=== PATIENT | female | born 1970 | race Native Hawaiian/Other Pacific Islander ===

== ENCOUNTER 2020-01-07 09:07 | Outpatient (REF) | payer MEDICAID, SELFPAY ==
--- NOTE | 2020-01-07 09:00 | EMG_ITS ---
Right median and ulnar motor and sensory studies were performed. Right radial sensory studies were performed. Paraspinal and some limb muscles were tested with a needle. IMPRESSION: 1. No evidence of entrapment neuropathy affecting right upper extremity. 2. Mild chronic right mid cervical radiculopathy. MD OPAL Field/ABHISHEK / [id number]
== END 2020-01-07 09:08 | disposition home or self-care (01) ==
LOC: HO.NEURO 09:07
DX: M79.601 Pain in right arm (principal)
CPT/HCPCS: 95860; 95886; 95909

== ENCOUNTER 2020-04-27 14:46 | Outpatient (REF) | payer MEDICAID, SELFPAY ==
--- NOTE | ~2020-04-27 | US_ITS ---
EXAMINATION: US PELVIS COMPLETE CLINICAL INFORMATION: Heavy and irregular bleeding. COMPARISON: None TECHNIQUE: Transabdominal and transvaginal imaging of pelvis is performed. FINDINGS: The uterus is anteverted and anteflexed measuring 12.6 cm in length, 8.3 cm in AP and 8.4 cm in transverse dimension. Endometrial thickness measures 0.6 cm. There is a well located IUD within the endometrial canal. There are 2 known fibroids. The larger fibroid in the right posterior body of uterus measures 5.2 x 3.9 x 4.7 cm. Previously it measured 6.1 x 4.7 x 5.8 cm. Smaller fibroid in the left anterior fundus measures 3.7 x 2.8 x 4.2 cm. Previously measured 4.0 x 3.3 x 3.8 cm. Neither ovary is visualized. There is no free fluid in the cul-de-sac. US/US pelvic complete IMPRESSION: Stable two uterine fibroids. IUD is in correct position within the endometrial canal. Ovaries are not seen.
--- NOTE | ~2020-04-27 | US_ITS ---
EXAMINATION: US PELVIS COMPLETE CLINICAL INFORMATION: Heavy and irregular bleeding. COMPARISON: None TECHNIQUE: Transabdominal and transvaginal imaging of pelvis is performed. FINDINGS: The uterus is anteverted and anteflexed measuring 12.6 cm in length, 8.3 cm in AP and 8.4 cm in transverse dimension. Endometrial thickness measures 0.6 cm. There is a well located IUD within the endometrial canal. There are 2 known fibroids. The larger fibroid in the right posterior body of uterus measures 5.2 x 3.9 x 4.7 cm. Previously it measured 6.1 x 4.7 x 5.8 cm. Smaller fibroid in the left anterior fundus measures 3.7 x 2.8 x 4.2 cm. Previously measured 4.0 x 3.3 x 3.8 cm. Neither ovary is visualized. There is no free fluid in the cul-de-sac. US/US transvaginal IMPRESSION: Stable two uterine fibroids. IUD is in correct position within the endometrial canal. Ovaries are not seen.
== END 2020-04-27 14:47 | disposition home or self-care (01) ==
LOC: HO.US 14:46
PROVIDERS: Visit Provider Internal Medicine
DX: N92.1 Excessive and frequent menstruation with irregular cycle (principal)
CPT/HCPCS: 76830; 76856

== ENCOUNTER 2020-05-30 14:31 | Outpatient (REF) | payer MEDICAID, SELFPAY ==
--- NOTE | ~2020-05-30 | XR_ITS ---
EXAMINATION: XR CHEST CLINICAL INFORMATION: Shortness of breath COMPARISON: Previous chest x-ray April 2016 TECHNIQUE: 2 views of the chest were obtained. FINDINGS: The cardiac and mediastinal contours are stable. The lungs are clear. There is slight elevation of the right hemidiaphragm that is stable. There is no pleural effusion or pneumothorax. Bony structures are unremarkable. XR/XR chest 2V IMPRESSION: No evidence for acute disease in the chest.
== END 2020-05-30 14:32 | disposition home or self-care (01) ==
LOC: HO.XRAY 14:31
PROVIDERS: PCP Internal Medicine; Visit Provider Internal Medicine
DX: R06.02 Shortness of breath (principal)
CPT/HCPCS: 71046

== ENCOUNTER 2020-06-13 13:59 | Outpatient (REF) | payer MEDICAID, SELFPAY ==
--- NOTE | 2020-06-13 | PFT_ITS ---
Forced vital capacity, FEV1, [id number], and MVV are all normal. The patient declined to have bronchodilator challenge. Total lung capacity normal. Residual volume slightly decreased. Diffusion capacity is normal. CONCLUSION: Normal pulmonary function test and there is no indication of obstructive or restrictive pulmonary disorder. As noted above, the patient declined to have bronchodilator challenge. MD CHRIS Ordonez/ABHISHEK / [id number]
== END 2020-06-13 14:00 | disposition home or self-care (01) ==
LOC: HO.RESP 13:59
PROVIDERS: PCP Internal Medicine; Visit Provider Internal Medicine
DX: R06.02 Shortness of breath (principal)
CPT/HCPCS: 94010; 94727; 94729

== ENCOUNTER → 2020-10-31 12:44 | Outpatient (BNVA) | payer MEDICAID, SELFPAY | PROVIDERS: PCP Internal Medicine; Referring Provider Internal Medicine; Visit Provider Nurse Practitioner Family | DX: K21.9 Gastro-esophageal reflux disease without esophagitis (principal); E66.01 Morbid (severe) obesity due to excess calories; Z68.42 Body mass index [BMI] 45.0-49.9, adult; Z88.8 Allergy status to other drugs, medicaments and biological substances | CPT/HCPCS: 99202 ==

== ENCOUNTER 2020-11-23 10:36 | Outpatient (REF) | payer MEDICAID, SELFPAY ==
--- NOTE | 2020-11-23 | EMG_ITS ---
This is a 50-year-old woman with a 6 month history of pain, numbness, and tingling in the upper extremities with the right worse than the left. No other medical problems. PHYSICAL EXAMINATION: On examination, she is alert and oriented with normal intellectual functions. Cranial nerves II through XII are normal. Muscle tone and strength are normal. No Tinel or Phalen sign. IMPRESSION: Rule out carpal tunnel syndrome. Nerve conduction EMG study: Normal electrodiagnostic study of the right upper extremity. No evidence of carpal tunnel syndrome or generalized neuropathy. Normal EMG of the right C5-T1 innervated muscles. MD OTF Loo/ABHISHEK / [id number]
== END 2020-11-23 10:37 | disposition home or self-care (01) ==
LOC: HO.NEURO 10:36
DX: M54.12 Radiculopathy, cervical region (principal)
CPT/HCPCS: 95885; 95910

== ENCOUNTER 2020-12-02 14:00 | Outpatient (RCR) | payer MEDICAID, SELFPAY | END 2020-12-13 15:36 | disposition home or self-care (01) | LOC: HO.PT 14:00 | PROVIDERS: PCP Internal Medicine; Visit Provider Internal Medicine | DX: M54.12 Radiculopathy, cervical region (principal) | CPT/HCPCS: 97012; 97110; 97112; 97140; 97150; 97161 ==

== ENCOUNTER 2020-12-29 08:48 | Outpatient (REF) | payer MEDICAID, SELFPAY | END 2020-12-29 08:49 | disposition home or self-care (01) | LOC: HO.HOSX 08:48 | PROVIDERS: Visit Provider Physician Assistant | DX: M22.2X1 Patellofemoral disorders, right knee (principal); M22.2X2 Patellofemoral disorders, left knee | CPT/HCPCS: 99212 ==

== ENCOUNTER 2021-06-22 15:03 | Outpatient (REF) | payer MEDICAID, SELFPAY ==
--- NOTE | ~2021-06-22 | MM_ITS ---
EXAMINATION: MM SCREENING DIGITAL BREAST TOMOSYNTHESIS, BILATERAL CLINICAL INFORMATION: Screening. Asymptomatic. The lifetime risk of breast cancer based on the Tyrer-Cuzick Model is 6.2%. COMPARISON: Mammography: May 21, 2017 and May 15, 2016 TECHNIQUE: Digital breast tomosynthesis is performed in both the craniocaudal and mediolateral oblique views along with computer-aided detection (CAD). Synthesized 2D images are generated from the tomosynthesis. FINDINGS: There are scattered areas of fibroglandular density (ACR BI-RADS breast composition Category b). There are no significant masses, abnormal calcifications, or other abnormalities. MM/MM tomosynthesis screening BI IMPRESSION: There are no significant changes from prior study. ASSESSMENT: BI-RADS 1: Negative RECOMMENDATION: Routine annual mammography screening. This patient's information was entered into a reminder system with a target due date for their next mammogram.
== END 2021-06-22 15:04 | disposition home or self-care (01) ==
LOC: HO.MAMMO 15:03
PROVIDERS: PCP Internal Medicine; Visit Provider Internal Medicine
DX: Z12.31 Encounter for screening mammogram for malignant neoplasm of breast (principal)
CPT/HCPCS: 77063; 77067

== ENCOUNTER 2021-07-24 15:00 | Outpatient (RCR) | payer MEDICAID, SELFPAY ==
--- NOTE | 2021-06-19 15:45 | MHC.PT.EP ---
[facility] [place] Office [place] Office [place] Office [address] Dontae Thomas [address] [phone] F: [phone] F: [phone] F: [phone] F: [phone] Physical Therapy Plan of Care Date of Evaluation: Date of Surgery: N/A Diagnosis: patellofemoral disorders of B knees Assessment: pt presents to physical therapy with pain, decreased range of motion, decreased strength, impaired functional mobility, impaired postural awareness, and gait deviations. pt is a good candidate for skilled PT due to age, potential remediation of impairments, typical disease/condition progression and prognosis, comorbidities, and motivation. pt would benefit from tailored strengthening and stretching exercise program, functional training, gait training, postural re-training, neuromuscular re-education, modalities as needed for pain, equipment safety demonstration. Frequency and Duration: The patient will be seen 1x/wk for 6 wks Short Term Goals: pt will be I w/ HEP to promote self-management of condition. pt will improve B knee flexion by 10 degrees to promote ease in sitting for seated ADLs. Care Home Goals: pt will ascend/descend 20 stairs mod I w/ LRAD w/ reports of pain of <3/10. pt will ambulate 1700' I w/ no rest breaks to promote access to grocery store for social participation. Treatment Plan: Modalities to reduce pain, spasms and effusion. Manual therapy to restore motion and function. Therapeutic exercise to improve strength and flexibility. Neuromuscular re-education for posture and balance. Therapeutic activities to return to functional activities of daily living. Electronically signed by: Maien Ennis PT, DPT Please sign and return to therapist. Thank you for your referral.
--- NOTE | 2021-07-25 11:22 | MHC.PT.DC ---
[facility] [place] Office [place] Office [place] Office [address] Dontae Thomas 140 [facility] [phone] F: [phone] F: [phone] F: [phone] F: [phone] Physical Therapy Discharge Report Diagnosis: patellofemoral disorders of B knees Date of Surgery: N/A Date of Evaluation: 06/19/21 Date of Discharge: 07/25/21 Treatments to Date: 6 Cancellations to Date: 2 No Shows to Date: 0 Discharge Status: Improved Function Independent with HEP Discharge Summary: The patient overall has been consistently reporting little to no pain of both her knees. She has improved tolerance for her self-care activities as well as shelver and access to the community. She is independent with her home exercise program. She is discharged from this physical therapy plan of care to her home exercise program. Electronically signed by: [place] Ennis PT, DPT Please sign and return to therapist. Thank you for your referral.
== END 2021-07-25 11:22 | disposition home or self-care (01) ==
LOC: HO.PT 15:00
PROVIDERS: PCP Internal Medicine; Visit Provider Physician Assistant
DX: M22.2X1 Patellofemoral disorders, right knee (principal); M22.2X2 Patellofemoral disorders, left knee
CPT/HCPCS: 97110; 97140; 97162

== ENCOUNTER → 2021-08-23 15:30 | Outpatient (BNVA) | payer MEDICAID, SELFPAY | PROVIDERS: PCP Internal Medicine; Visit Provider Internal Medicine | DX: G47.33 Obstructive sleep apnea (adult) (pediatric) (principal); J30.9 Allergic rhinitis, unspecified; E66.01 Morbid (severe) obesity due to excess calories; Z68.43 Body mass index [BMI] 50.0-59.9, adult; Z99.89 Dependence on other enabling machines and devices | CPT/HCPCS: 99212 ==

== ENCOUNTER → 2022-02-22 13:40 | Outpatient (BNVA) | payer MEDICAID, SELFPAY | PROVIDERS: PCP Internal Medicine; Visit Provider Internal Medicine | DX: G47.33 Obstructive sleep apnea (adult) (pediatric) (principal); E66.01 Morbid (severe) obesity due to excess calories; Z68.43 Body mass index [BMI] 50.0-59.9, adult; J30.9 Allergic rhinitis, unspecified; Z99.89 Dependence on other enabling machines and devices | CPT/HCPCS: 99212 ==

== ENCOUNTER 2022-06-29 14:58 | Outpatient (REF) | payer MEDICAID, SELFPAY ==
--- NOTE | ~2022-06-29 | MM_ITS ---
EXAMINATION: MM SCREENING DIGITAL BREAST TOMOSYNTHESIS, BILATERAL CLINICAL INFORMATION: Screening. Asymptomatic. The lifetime risk of breast cancer based on the Tyrer-Cuzick Model is 6%. COMPARISON: Mammography: 06/22/2021, 05/21/2017, 05/14/2016 (baseline). TECHNIQUE: Digital breast tomosynthesis is performed in both the craniocaudal and mediolateral oblique views along with computer-aided detection (CAD). Synthesized 2D images are generated from the tomosynthesis. Additional bilateral CC and views are provided. FINDINGS: There are scattered areas of fibroglandular density (ACR BI-RADS breast composition Category b). There are no significant masses, abnormal calcifications, or other abnormalities. Parenchymal pattern is similar to prior studies. No architectural abnormality. The axilla and skin contours are unremarkable. No significant changes. MM/MM tomosynthesis screening BI IMPRESSION: No mammographic evidence of malignancy. ASSESSMENT: BI-RADS 1: Negative RECOMMENDATION: Routine annual mammography screening. This patient's information was entered into a reminder system with a target due date for their next mammogram.
== END 2022-06-29 14:59 | disposition home or self-care (01) ==
LOC: HO.MAMMO 14:58
PROVIDERS: PCP General Practice; Visit Provider General Practice
DX: Z12.31 Encounter for screening mammogram for malignant neoplasm of breast (principal)
CPT/HCPCS: 77063; 77067

== ENCOUNTER 2022-10-12 16:26 | Outpatient (REF) | payer MEDICAID, SELFPAY ==
[2022-10-12 19:07] LABS: Alanine Aminotransferase 25 U/L (0-31); Albumin Level 4.1 g/dL (3.5-5.0); Alkaline Phosphatase 82 U/L (39-117); Anion Gap 13 (12-20); Aspartate Amino Transferase 22 U/L (5-31); Bilirubin Total 0.8 mg/dL (0.0-1.0); Blood Urea Nitrogen 12 mg/dL (9-16); Calcium 9.5 mg/dL (8.4-10.2); Carbon Dioxide 26 mmol/L (22-29); Chloride 105 mmol/L (96-108); Estimated Glomerular Filt Rate 58; Glucose Random 171 mg/dL (60-115); Potassium 4.2 mmol/L (3.3-5.1); Sodium 140 mmol/L (135-145); Total Protein 7.5 g/dL (6.5-8.0)
[2022-10-12 19:18] LABS: TSH reflex Free T4 1.99 uIU/mL (0.32-4.0)
== END 2022-10-12 16:27 | disposition home or self-care (01) ==
LOC: HO.HHCL 16:26
PROVIDERS: Visit Provider General Practice
DX: E03.8 Other specified hypothyroidism (principal); E06.3 Autoimmune thyroiditis
CPT/HCPCS: 36415; 80053; 84443

== ENCOUNTER 2023-02-06 12:47 | Outpatient (REF) | payer MEDICAID, SELFPAY ==
[2023-02-06 14:07] LABS: B Type Natriuretic Peptide 23 pg/mL (<100)
[2023-02-06 14:08] LABS: Alanine Aminotransferase 40 U/L (0-31); Albumin Level 4.2 g/dL (3.5-5.0); Alkaline Phosphatase 85 U/L (39-117); Anion Gap 13 (12-20); Aspartate Amino Transferase 27 U/L (5-31); Bilirubin Total 0.9 mg/dL (0.0-1.0); Blood Urea Nitrogen 12 mg/dL (9-16); Calcium 9.5 mg/dL (8.4-10.2); Carbon Dioxide 25 mmol/L (22-29); Chloride 103 mmol/L (96-108); Estimated Glomerular Filt Rate > 60; Glucose Random 160 mg/dL (60-115); Potassium 3.5 mmol/L (3.3-5.1); Sodium 137 mmol/L (135-145); Total Protein 7.6 g/dL (6.5-8.0)
== END 2023-02-06 12:48 | disposition home or self-care (01) ==
LOC: HO.LAB 12:47
PROVIDERS: PCP General Practice; Visit Provider General Practice
DX: M79.89 Other specified soft tissue disorders (principal); N92.0 Excessive and frequent menstruation with regular cycle; Z97.5 Presence of (intrauterine) contraceptive device
CPT/HCPCS: 36415; 80053; 83880

== ENCOUNTER 2023-02-26 13:15 | Outpatient (AMB) | payer MEDICAID, SELFPAY ==
--- NOTE | 2023-02-26 13:18 | A.OFFVIS_ITS ---
Intake Vital Signs 02/26/23 13:20 Height 5 ft 2 in Weight 316 lb 5.813 oz BMI 57.9 BP 128/74 Blood Pressure Location Lt brachial Position Sitting Pulse 84 Pulse Source Pulse Oximeter Pulse Oximetry (%) 99 Oxygen Delivery Method Room Air Intake Visit Reasons: Obstructive sleep apnea Allergies sulfamethoxazole [From Bactrim] Adverse Reaction (Verified 02/26/23 13:25) rash trimethoprim [From Bactrim] Adverse Reaction (Verified 02/26/23 13:25) rash Medication List - Last Reconciled 02/26/23 by Breonna Canseco MD atorvastatin 40 mg PO DAILY bisacodyl (Dulcolax (bisacodyl)) 10 mg (2 x 5 mg) PO ONCE 1 day cetirizine 10 mg PO DAILY chlorthalidone 25 mg PO QAM cholecalciferol (vitamin D3) 25 mcg PO DAILY doxycycline monohydrate 100 mg PO BID fluticasone propionate 50 mcg/actuation 2 sprays intranasal QAM levothyroxine 88 mcg PO DAILY meloxicam 15 mg PO DAILY pantoprazole 40 mg PO DAILY polyethylene glycol 3350 (Miralax) 238 grams PO ONCE zolpidem 5 mg PO BEDTIME PRN Do you need a note to return to daycare/school/sports/work: No HPI Obstructive sleep apnea HPI Details 52 YEARS OLD FEMALE WITH MORBID OBESITY AND OBSTRUCTIVE SLEEP APNEA, COMES AFTER 1 YEAR FOR FOLLOW-UP. HAS BEEN USING CPAP VERY REGULARLY EVERY NIGHT, AND SLEEPS GOOD. SHE HAS NO ISSUES RELATED TO THE MASK OR CPAP DEVICE. SHE HAS PROBLEM OF MORBID OBESITY, SINCE LAST YEAR SHE HAS ACTUALLY GAINED MORE THAN 40 LB OF WEIGHT. SHE DENIES A EATING EXCESSIVELY. [facility] Medical History Allergic rhinitis CASSIDY on CPAP Morbid obesity Anxiety PLMD (periodic limb movement disorder) Dry eyes CASSIDY (obstructive sleep apnea) GERD (gastroesophageal reflux disease) Menorrhagia with regular cycle Iron deficiency Class 3 severe obesity due to excess calories in adult Chronic midline low back pain Anosmia Depression Stress incontinence Hypothyroid Eczema Right knee meniscal tear Pure hypercholesterolemia Family History Mother Diabetes Father Cancer Son Diabetes Social History Patient Tobacco Use Status: Former Tobacco user Review of Systems Const All systems reviewed & are unremarkable except as noted in HPI and below Eyes Reports no additional complaints ENT Reports nasal congestion (OFF AND ON) and Reports nasal discharge Card Reports no additional complaints Resp Reports no additional complaints GI Reports constipation and Reports heartburn (GERD SYMPTOMS CONTROLLED WITH MED) Reports no additional complaints Musc Reports no additional complaints Skin/Breast Reports system reviewed and no additional complaints, except as documented Neuro Reports no additional complaints and Reports restless legs (HAS IMPROVED AND SHE IS OF IRON SUPPLEMENTS) Psych Reports no additional complaints Endo Reports other (HYPOTHYROIDISM BEING TREATED WITH MED) Physical Exam Vital Signs: Last Vital Signs Pulse 84 02/26/23 13:20 BP 128/74 02/26/23 13:20 Pulse Ox 99 02/26/23 13:20 Oxygen Delivery Method Room Air 02/26/23 13:20 BMI result Body Mass Index 57.9 Const Other: OBESE BUT VERY HEALTHY LOOKING. General: comfortable, no acute distress, alert and awake Orientation/consciousness: patient oriented x3 HEENT Head: Yes normal to inspection General nose exam: No nasal polyps present and No nasal discharge present Face and sinus: Yes sinuses nontender Mouth: oropharynx normal Throat: Yes posterior oropharynx normal Eyes General: appearance normal, both eyes and all related structures Neck Neck: Yes normal visual inspection, Yes no lymphadenopathy, Yes trachea midline and Yes no JVD Thyroid: Thyroid normal Chest Chest palpation & inspection: normal inspection of the chest, normal palpation of entire chest wall and no tenderness Resp Effort & Inspection: normal respiratory effort Auscultation: clear to auscultation bilaterally, no crackles and no wheezes Cardio Palpation: normal PMI Rate: regular rate Rhythm: regular rhythm Heart sounds: no gallops and no murmurs Peripheral pulses: Peripheral pulses 2+ throughout GI Palpation (GI): Soft to palpation, nontender, No hepatosplenomegaly present, no masses and Other GI palpation findings present (ABDOMEN IS OBESE AND SOMEWHAT PROTUBERANT) Auscultation: normal bowel sounds Back/Spine/Pelvis Thoracic/Lumbar Spine: thoracic and lumbar spine normal to inspection and thoraco-lumbar ROM limited Skin General skin exam: no rashes or lesions noted Neuro General: patient oriented x3 and no focal motor deficits Cranial nerves: Yes CN's II-XII intact bilaterally Extrem General: Yes normal to inspection, Yes no calf tenderness and Yes edema (TRACE OF PITTING EDEMA OF BOTH LEGS) Psych Appearance: grossly normal and well kempt Speech and movement: Normal speech and movement present Results Reviewed Results Reviewed: COMPLIANCE REPORT IS REVIEWED AND SHE HAS USED 30/30 NIGHTS, 100%. AVERAGE USE PER NIGHT 7 HOURS PRESSURE 8 CM. NO AIR LEAK. RESIDUAL AHI 0.7 Assessment & Plan Assessment & Plan (1) Morbid obesity: Comment: SHE REMAINS MORBIDLY OBESE, HAS GAINED 40 LBs IN LAST ONE YEAR . Code(s): E66.01 - Morbid (severe) obesity due to excess calories Plan: DISCUSSED ABOUT THE WEIGHT GAIT. I HAVE ADVISED HER TO MAKE APPOINTMENT WITH, HER PRIMARY CARE PHYSICIAN AND SHOULD BE CHECKED THOROUGHLY, SHE MAY NEED ADJUSTMENT IN THE DOSE OF THE LEVOTHYROXINE, AND ALSO MAY NEED TO HAVE ADJUSTMENT IN THE DOSE OF DIURETIC AGENT. (2) CASSIDY on CPAP: Comment: PATIENT HAS HISTORY OF MODERATELY SEVERE OBSTRUCTIVE SLEEP APNEA, RESPONDING WELL TO THE CPAP THERAPY. SHE IS VERY COMPLIANT AND DEFINITELY BENEFITING FROM THE USE OF CPAP. Code(s): G47.33 - Obstructive sleep apnea (adult) (pediatric); Z99.89 - Dependence on other enabling machines and devices Plan: PATIENT IS ADVISED TO CONTINUE USING THE CPAP REGULARLY. SETTINGS ARE : F F MASK PRESSURE= 8 CMs (3) Allergic rhinitis: Comment: PATIENT HAS SYMPTOMS OF NASAL CONGESTION WITH POSTNASAL DRIP OFF AND ON, SECONDARY TO ALLERGIC RHINITIS. TX: CONTINUE FLONASE 2 SPRAY EACH NOSTRIL DAILY AND USE CETRAZINE 10 MG ONCE A DAY P.R.N.. Code(s): J30.9 - Allergic rhinitis, unspecified Plan: ABOVE Coding Level of Care Code Est Pt Level 3 (46848) Diagnoses Morbid obesity E66.01 CASSIDY on CPAP G47.33; Z99.89 Allergic rhinitis J30.9
[2023-02-26 13:20] VITALS: BP 128/74; PULSE 84; O2SAT 99; BMI 57.9
== END 2023-02-26 13:31 | disposition home or self-care (01) ==
PROVIDERS: PCP General Practice; Referring Provider General Practice; Visit Provider Internal Medicine
DX: E66.01 Morbid (severe) obesity due to excess calories (principal); G47.33 Obstructive sleep apnea (adult) (pediatric); Z99.89 Dependence on other enabling machines and devices; J30.9 Allergic rhinitis, unspecified
CPT/HCPCS: 99213

== ENCOUNTER → 2023-02-26 13:15 | Outpatient (BNVA) | payer MEDICAID, SELFPAY | PROVIDERS: PCP General Practice; Visit Provider Internal Medicine | DX: J30.9 Allergic rhinitis, unspecified (principal); E66.01 Morbid (severe) obesity due to excess calories; Z99.89 Dependence on other enabling machines and devices; Z68.43 Body mass index [BMI] 50.0-59.9, adult | CPT/HCPCS: 99212 ==

== ENCOUNTER 2023-03-01 13:57 | Outpatient (REF) | payer MEDICAID, SELFPAY ==
--- NOTE | ~2023-03-01 | US_ITS ---
EXAMINATION: US PELVIS COMPLETE CLINICAL INFORMATION: Heavy vaginal bleeding; the last menstrual period was 3 days prior. COMPARISON: Pelvic ultrasound dated 04/27/2020. TECHNIQUE: Transabdominal and transvaginal imaging were performed. FINDINGS: The uterus is enlarged and normal in echotexture, measuring 14.5 x 9.5 x 9.5 cm. The uterus is anteverted and anteflexed. The endometrial stripe is poorly visualized due to uterine fibroids An intrauterine device is seen, positioned somewhat low within the lower uterine segment. Nabothian cysts are seen within the cervix. FIBROIDS: There are 2 fibroids seen. 1. Location: Rightward mid body, myometrial. Size: 6.3 x 6.1 x 6.2 cm. Prior: 5.2 x 3.9 x 4.7 cm. Fibroid characteristics: 2. Location: Leftward isthmus, myometrial. Size: 4.0 x 4.5 x 4.3 cm. Prior: 3.7 x 2.8 x 4.2 cm. Fibroid characteristics: Both ovaries are nonvisualized. There is no pelvic free fluid. No adnexal masses seen. There is prominent bilateral adnexal vasculature. US/US pelvic and transvaginal IMPRESSION: 1. There are uterine fibroids, as detailed. 2. An intrauterine device is seen, positioned somewhat low within the lower uterine segment. 3. Nabothian cysts are seen within the cervix. 4. The bilateral ovaries are nonvisualized. 5. There is prominent adnexal vasculature, which can be a surgical clip noted congestion.
== END 2023-03-01 13:58 | disposition home or self-care (01) ==
LOC: HO.US 13:57
PROVIDERS: PCP General Practice; Visit Provider General Practice
DX: N92.0 Excessive and frequent menstruation with regular cycle (principal)
CPT/HCPCS: 76830; 76856

== ENCOUNTER 2023-06-07 11:50 | Outpatient (REF) | payer MEDICAID, SELFPAY ==
--- NOTE | ~2023-06-07 | XR_ITS ---
STUDY: Left foot and ankle INDICATION: Patient fell over curb 3 weeks ago, swelling and pain over medial malleolus, talus and navicular bone COMPARISON: 05/30/2016 TECHNIQUE: 3 views each left foot and ankle FINDINGS: Diffuse soft tissue swelling about the ankle. Alignment and articulations maintained. Mortise is intact. Calcaneal spurring. Achilles enthesopathy. No fracture or dislocation. XR/XR ankle LT min 3V IMPRESSION: Left ankle soft tissue swelling. No acute bony pathology left foot and ankle.
--- NOTE | ~2023-06-07 | XR_ITS ---
STUDY: Left foot and ankle INDICATION: Patient fell over curb 3 weeks ago, swelling and pain over medial malleolus, talus and navicular bone COMPARISON: 05/30/2016 TECHNIQUE: 3 views each left foot and ankle FINDINGS: Diffuse soft tissue swelling about the ankle. Alignment and articulations maintained. Mortise is intact. Calcaneal spurring. Achilles enthesopathy. No fracture or dislocation. XR/XR foot LT min 3V IMPRESSION: Left ankle soft tissue swelling. No acute bony pathology left foot and ankle.
== END 2023-06-07 11:51 | disposition home or self-care (01) ==
LOC: HO.HHCX 11:50
PROVIDERS: Visit Provider Emergency Medicine
DX: S99.912A Unspecified injury of left ankle, initial encounter (principal); R60.0 Localized edema
CPT/HCPCS: 73610; 73630

== ENCOUNTER 2023-06-10 14:00 | Outpatient (RCR) | payer MEDICAID, SELFPAY | END 2023-06-11 12:34 | disposition home or self-care (01) | LOC: HO.PT 14:00 | PROVIDERS: PCP General Practice; Visit Provider General Practice | DX: M54.50 Low back pain, unspecified (principal); G89.29 Other chronic pain | CPT/HCPCS: 97110; 97140; 97162 ==

== ENCOUNTER 2023-08-29 13:27 | Outpatient (AMB) | payer MEDICAID, SELFPAY ==
--- NOTE | 2023-08-29 13:32 | MHC.OFFVIS ---
Vital Signs 08/29/23 13:34 Height 5 ft 2 in Weight 324 lb 1.272 oz BMI 59.3 BP 132/78 Blood Pressure Location Lt brachial Position Sitting Pulse 75 Pulse Source Pulse Oximeter Pulse Oximetry (%) 99 Oxygen Delivery Method Room Air Intake Visit Reasons: Obstructive sleep apnea Intake Note: pt is here for follow up of CASSIDY and feeing good, cpap going well Title Processor Required: No Allergies sulfamethoxazole [From Bactrim] Adverse Reaction (Verified 08/29/23 13:46) rash trimethoprim [From Bactrim] Adverse Reaction (Verified 08/29/23 13:46) rash Medication List - Last Reconciled 08/29/23 by Breonna Canseco MD atorvastatin 40 mg PO DAILY cetirizine 10 mg PO DAILY PRN chlorthalidone 25 mg PO QAM cholecalciferol (vitamin D3) 25 mcg PO DAILY fluticasone propionate 50 mcg/actuation 2 sprays intranasal QAM levothyroxine 88 mcg PO DAILY lidocaine 5% patches topical meloxicam 15 mg PO DAILY pantoprazole 40 mg PO DAILY zolpidem 5 mg PO BEDTIME PRN Do you need a note to return to daycare/school/sports/work: No HPI HPI Obstructive sleep apnea: Details: 52 YEARS OLD FEMALE WITH MORBID OBESITY AND OBSTRUCTIVE SLEEP APNEA. COMES AFTER 6 MONTHS FOR FOLLOW-UP. SHE USES CPAP VERY REGULARLY EVERY NIGHT AND SLEEPS WELL. SHE HAS NO ISSUES WITH THE CPAP MASK OR THE CPAP DEVICE. WILL BE HARD FOR HER TO SLEEP WITHOUT USE OF THE CPAP. THE MAIN PROBLEM IS THAT SHE KEEPS ON PUTTING ON MORE WEIGHT, PART OF IT IS DUE TO FLUID RETENTION, SHE HAD STOPPED TAKING HER DIURETIC, CHLORTHALIDONE, AND HAS DEVELOPED SOME PITTING EDEMA AROUND THE ANKLE. SHE HAS NOT IN ANY WEIGHT MANAGEMENT PROGRAM [facility] Medical History Allergic rhinitis CASSIDY on CPAP Morbid obesity Anxiety PLMD (periodic limb movement disorder) Dry eyes CASSIDY (obstructive sleep apnea) GERD (gastroesophageal reflux disease) Menorrhagia with regular cycle Iron deficiency Class 3 severe obesity due to excess calories in adult Chronic midline low back pain Anosmia Depression Stress incontinence Hypothyroid Eczema Right knee meniscal tear Pure hypercholesterolemia Family History Mother Diabetes Father Cancer Son Diabetes Social History Patient Tobacco Use Status: Former Tobacco user Review of Systems Const All systems reviewed & are unremarkable except as noted in HPI and below Eyes Reports no additional complaints ENT Reports nasal congestion (OFF AND ON) and Reports nasal discharge Card Reports no additional complaints Resp Reports no additional complaints GI Reports constipation and Reports heartburn (GERD SYMPTOMS CONTROLLED WITH MED) Reports no additional complaints Musc Reports no additional complaints Skin/Breast Reports system reviewed and no additional complaints, except as documented Neuro Reports no additional complaints and Reports restless legs (HAS IMPROVED AND SHE IS OF IRON SUPPLEMENTS) Psych Reports no additional complaints Endo Reports other (HYPOTHYROIDISM BEING TREATED WITH MED) Physical Exam Const Other: OBESE BUT VERY HEALTHY LOOKING. General: comfortable, no acute distress, alert and awake Orientation/consciousness: patient oriented x3 HEENT Head: Yes normal to inspection General nose exam: No nasal polyps present and No nasal discharge present Face and sinus: Yes sinuses nontender Mouth: oropharynx normal Throat: Yes posterior oropharynx normal Eyes General: appearance normal, both eyes and all related structures Neck Neck: Yes normal visual inspection, Yes no lymphadenopathy, Yes trachea midline and Yes no JVD Thyroid: Thyroid normal Chest Chest palpation & inspection: normal inspection of the chest, normal palpation of entire chest wall and no tenderness Resp Effort & Inspection: normal respiratory effort Auscultation: clear to auscultation bilaterally, no crackles and no wheezes Cardio Palpation: normal PMI Rate: regular rate Rhythm: regular rhythm Heart sounds: no gallops and no murmurs Peripheral pulses: Peripheral pulses 2+ throughout GI Palpation (GI): Soft to palpation, nontender, No hepatosplenomegaly present, no masses and Other GI palpation findings present (ABDOMEN IS OBESE AND SOMEWHAT PROTUBERANT) Auscultation: normal bowel sounds Back/Spine/Pelvis Thoracic/Lumbar Spine: thoracic and lumbar spine normal to inspection and thoraco-lumbar ROM limited Skin General skin exam: no rashes or lesions noted Neuro General: patient oriented x3 and no focal motor deficits Cranial nerves: Yes CN's II-XII intact bilaterally Extrem General: Yes normal to inspection, Yes no calf tenderness and Yes edema (TRACE OF PITTING EDEMA OF BOTH LEGS) Psych Appearance: grossly normal and well kempt Speech and movement: Normal speech and movement present Results Reviewed Results Reviewed: COMPLIANCE REPORT IS REVIEWED AND SHE HAS USED 30/30 NIGHTS, 100%. AVERAGE USE IT PER NIGHT 6 HOURS 56 MINUTES, PRESSURE IS RELATIVELY LOW, 8 CM. THERE IS NO AIR LEAK AND RESIDUAL AHI 1.9 Assessment & Plan Assessment & Plan (1) Morbid obesity: Comment: SHE REMAINS MORBIDLY OBESE, HAS GAINED 8 MORE LB SINCE HER LAST VISIT. Code(s): E66.01 - Morbid (severe) obesity due to excess calories Category: Medical Plan: DISCUSSED ABOUT THE WEIGHT. SHE NEEDS TO SEE HER PRIMARY CARE PHYSICIAN AND I THINK SHE SHOULD START TAKING HER CHLORTHALIDONE AGAIN. MOST IMPORTANT THING IS SHE NEEDS TO SEE A DIETITIAN OR JOIN A WEIGHT MANAGEMENT PROGRAM. (2) CASSIDY on CPAP: Comment: PATIENT HAS HISTORY OF MODERATELY SEVERE OBSTRUCTIVE SLEEP APNEA, RESPONDING WELL TO THE CPAP THERAPY. SHE IS VERY COMPLIANT AND DEFINITELY BENEFITING FROM THE USE OF CPAP. Code(s): G47.33 - Obstructive sleep apnea (adult) (pediatric); Z99.89 - Dependence on other enabling machines and devices Category: Medical Plan: COMMENDED FOR GOOD COMPLIANCE, AND ADVISED TO CONTINUE USING THE CPAP REGULARLY EVERY NIGHT. (3) Allergic rhinitis: Comment: PATIENT HAS SYMPTOMS OF NASAL CONGESTION WITH POSTNASAL DRIP OFF SEC TO ALLERGIC RHINITIS. Code(s): J30.9 - Allergic rhinitis, unspecified Category: Medical Plan: TX: CONTINUE FLONASE 2 SPRAY EACH NOSTRIL DAILY AND USE CETRAZINE 10 MG ONCE A DAY P.R.N.. Coding Level of Care Code Est Pt Level 3 (30951) Diagnoses Morbid obesity E66.01 CASSIDY on CPAP G47.33; Z99.89 Allergic rhinitis J30.9
[2023-08-29 13:34] VITALS: BP 132/78; PULSE 75; O2SAT 99; BMI 59.3
== END 2023-08-29 13:47 | disposition home or self-care (01) ==
PROVIDERS: PCP General Practice; Visit Provider Internal Medicine
DX: E66.01 Morbid (severe) obesity due to excess calories (principal); G47.33 Obstructive sleep apnea (adult) (pediatric); Z99.89 Dependence on other enabling machines and devices; J30.9 Allergic rhinitis, unspecified
CPT/HCPCS: 99213

== ENCOUNTER → 2023-08-29 13:27 | Outpatient (BNVA) | payer MEDICAID, SELFPAY | PROVIDERS: PCP General Practice; Visit Provider Internal Medicine | DX: G47.33 Obstructive sleep apnea (adult) (pediatric) (principal); J30.9 Allergic rhinitis, unspecified; E66.01 Morbid (severe) obesity due to excess calories; Z99.89 Dependence on other enabling machines and devices | CPT/HCPCS: 99212 ==

== ENCOUNTER 2023-12-18 15:35 | Outpatient (REF) | payer MEDICAID, SELFPAY ==
[2023-12-18 16:59] LABS: Alanine Aminotransferase 29 U/L (0-31); Albumin Level 3.9 g/dL (3.5-5.0); Alkaline Phosphatase 68 U/L (39-117); Anion Gap 11 (12-20); Aspartate Amino Transferase 23 U/L (5-31); Bilirubin Total 0.5 mg/dL (0.0-1.0); Blood Urea Nitrogen 10 mg/dL (9-16); Calcium 8.7 mg/dL (8.4-10.2); Carbon Dioxide 27 mmol/L (22-29); Chloride 105 mmol/L (96-108); Estimated Glomerular Filt Rate > 60; Glucose Random 100 mg/dL (60-115); Potassium 4.1 mmol/L (3.3-5.1); Sodium 139 mmol/L (135-145)
== END 2023-12-18 15:36 | disposition home or self-care (01) ==
LOC: HO.LAB 15:35
PROVIDERS: PCP General Practice; Visit Provider Registered Nurse
DX: B35.3 Tinea pedis (principal)
CPT/HCPCS: 36415; 80053; 87070; 87077; 87186; 87205

== ENCOUNTER 2024-01-15 11:13 | Outpatient (RCR) | payer MEDICAID, SELFPAY | END 2024-02-13 11:22 | disposition home or self-care (01) | LOC: HO.PT 11:13 | PROVIDERS: PCP General Practice; Visit Provider General Practice | DX: M76.62 Achilles tendinitis, left leg (principal) | CPT/HCPCS: 97110; 97161; 97530 ==

== ENCOUNTER 2024-04-01 09:19 | Outpatient (REF) | payer MEDICAID, SELFPAY ==
--- OUTSIDE RECORDS SUMMARY | 2024-04-01 10:26 | XMS_ITS | Encounter Summary ---
Author Organization [employer] Address [address] [facility] 7t [place] [address] Care Team Providers Care Inverted Block Operator Name Role Phone Amy Rosa MD Primary Care Provider [phone] Encounter Details Date Type Department Care Team ([facility] st Contact Info) Description 03/28/2023 Orders Only [facility] MEDICINE [address] [place], [place] [id number] Amy Rosa MD [address] [place], [place] [phone] Social History Tobacco Use Types Packs/Day Years Used Date Smoking Tobacco: Former Cigarettes Smokeless Tobacco: Never Alcohol Use Standard Drinks/Week Comments Never 0 (1 standard drink = 0.6 oz pur e alcohol) Housing Stability Answer Date Recorded What is your housing situation today? I have katie jones 12/03/[address] you li ve. Do you have problems with any of the following? None of the above 12/03/2022 Food Insecurity Answer Date Recorded Within the past 12 months, y ou worried that your food would run out before you got money to buy more: Never True 12/03/2022 Within the past 12 months,th e food you bought just didn't last and you didn't have enough money to get more: Never True Transportation Answer Date Recorded In the past 12 months, has l ack of transportation kept you from medical appts, meetings, work or from getting things needed for daily living? No 12/03/2022 Utilities Answer Date Recorded In the past 12 months, has t he electric, gas, oil or water company threatened to shut off services in your home? No 12/03/2022 Depression Answer Date Recorded Patient Health Questionnaire-2 Score 0 04/11/2022 Comments No Sex and Gender Information Value Date Recorded Sex Assigned at Female 12/18/2021 10:14 AM EDT Legal Sex Female 10:14 AM EDT Gender Identity Female 12/18/2021 10:14 AM EDT Sexual Orientation Choose not to disclose 2021 10:14 AM EDT documented as of this encounter Plan of Treatment Upcoming Encounters Date Type Department Care Team (Late st Contact Info) Description 05/06/2024 3:45 PM EDT Office Visit [facility] MEDICINE [address] [place] [address] Amy Rosa MD [address] [place] [address] documented as of this encounter Procedures Procedure Name Priority Date/Time Associated Diagnosis Comments GRAM STAIN Routine 12/18/2023 2:00 PM EDT documented in this encounter Results * Gram stain (12/18/2023 2:00 PM EDT) 12/18/2023 2:00 PM EDT 12/18/2023 6:11 PM EDT Comment:Foot Rt Narrative [facility] - 12/21/2023 7:42 AM EDT Gram stain results: No polys 2+ epithelial cells 3+ Gram-positive cocci 3+ Gram-negative rods Routine Culture Report - external Routine Culture 2+ Mixed skin rah Proteus mirabilis Quant Org ID 3+ Pseudomonas aeruginosa Quant Org ID 3+ Proteus mirabilis: Ampicillin <=2(S) Proteus mirabilis: Cefazolin null(I) Proteus mirabilis: Cefepime <=0.12(S) Proteus mirabilis: Ceftriaxone <=0.25(S) Proteus mirabilis: Ciprofloxacin <=0.06(S) Proteus mirabilis: Gentamicin <=1(S) Proteus mirabilis: Trimethoprim/Sulfamethoxazole <=20(S) Pseudomonas aeruginosa: Cefepime 2(S) Pseudomonas aeruginosa: Ciprofloxacin 0.12(S) Pseudomonas aeruginosa: Gentamicin <=1(S) Pseudomonas aeruginosa: Meropenem <=0.25(S) Pseudomonas aeruginosa: Piperacillin/Tazobactam <=4(S) Specimen Source: Foot Right [facility] MICROBIOLOGY - GENERAL OR DERABLES Final Result [facility] [address] [place] [address] [phone] documented in this encounter Visit Diagnoses Not on filedocumented in this encounter Care Teams Inverted Block Operator Relationship Specialty Start Date End Date Amy Rosa MD [address] [place] [address] PCP - General Family Medicine 04/05/22 documented as of this encounter
--- OUTSIDE RECORDS SUMMARY | 2024-04-01 10:26 | XMS_ITS | Encounter Summary ---
Author Organization [employer] Address [address] [facility] 7t [place] [address] Care Team Providers Care Basket Sorter Name Role Phone Amy Rosa MD Primary Care Provider [phone] Reason for Visit * Reason Onset Date Comments [employer] 03/17/2024 U nderwear, protective [employer] XLRG Encounter Details Date Type Department Care Team (Late st Contact Info) Description 03/17/2024 Telephone [facility] MEDICINE [address] [place] [address] Amy Rosa MD [address] [place] [address] [employer] (Underwear, protective [employer] XLRG) Social History Tobacco Use Types Packs/Day Years Used Date Smoking Tobacco: Former Cigarettes Smokeless Tobacco: Never Alcohol Use Standard Drinks/Week Comments Never 0 (1 standard drink = 0.6 oz pur e alcohol) Depression Answer Date Recorded Patient Health Questionnaire-9 Score 0 11/08/2023 Patient Health Questionnaire-9 Score 0 11/08/2023 Last PHQ-9: Questionnaire Data Not on file 0 11/08/2023 Housing Stability Answer Date Recorded What is your housing situation today? I have katie jones 11/08/[address] you li ve. Do you have problems with any of the following? None of the above 11/08/2023 Food Insecurity Answer Date Recorded Within the past 12 months, y ou worried that your food would run out before you got money to buy more: Never True 11/08/2023 Within the past 12 months,th e food you bought just didn't last and you didn't have enough money to get more: Never True Transportation Answer Date Recorded In the past 12 months, has l ack of transportation kept you from medical appts, meetings, work or from getting things needed for daily living? No 11/08/2023 Utilities Answer Date Recorded In the past 12 months, has t he electric, gas, oil or water company threatened to shut off services in your home? No 11/08/2023 Depression Answer Date Recorded Patient Health Questionnaire-2 Score 0 11/08/2023 Internet Access Answer Date Recorded Internet Access Q1 Yes 11/08/2023 Internet Access Q2 Not on file 11/08/2023 Comments No Sex and Gender Information Value Date Recorded Sex Assigned at Female 12/18/2021 10:14 AM EDT Legal Sex Female 10:14 AM EDT Gender Identity Female 12/18/2021 10:14 AM EDT Sexual Orientation Choose not to disclose 2021 10:14 AM EDT documented as of this encounter Miscellaneous Notes * Telephone Encounter - Sherrie Willams - 03/19/2024 11:44 AM EST [facility] prescription and medical necessity review form for Absorbant products for Diapers/pull ups signed and faxed to [facility] . Confirmation received and sent to scan. If patient calls to check status on above, please advise them to contact [employer] at [phone]. * Telephone Encounter - Margaret Paige [place] - 03/17/2024 2:25 PM EST Received medical necessity form from [employer] which has been filled out and placed on PCP's desk for signature. documented in this encounter Plan of Treatment Upcoming Encounters Date Type Department Care Team (Late st Contact Info) Description 05/06/2024 3:45 PM EDT Office Visit [facility] MEDICINE [address] [place] [address] Amy Rosa MD [address] [place] [address] documented as of this encounter Visit Diagnoses Not on filedocumented in this encounter Additional Health Concerns Assessment Noted Time PHQ-9 Depression Total Score: 0 11/08/19 24 2:44 PM EDT documented as of this encounter Care Teams Basket Sorter Relationship Specialty Start Date End Date Amy Rosa MD [address] [place] [address] PCP - General Family Medicine 04/05/22 documented as of this encounter
--- OUTSIDE RECORDS SUMMARY | 2024-04-01 10:26 | XMS_ITS | Encounter Summary ---
Author Organization [employer] Address [address] [place] [address] 7 [place] [address] Care Team Providers Care Research Program Internship Name Role Phone Amy Rosa MD Primary Care Provider [phone] Encounter Details Date Type Department Care Team (Late st Contact Info) Description 07/18/2022 [facility] Health Information Management [address] [place] [address] Amy Rosa MD [address] [place] [address] Social History Tobacco Use Types Packs/Day Years Used Date Smoking Tobacco: Never Smokeless Tobacco: Never Alcohol Use Standard Drinks/Week Comments Never 0 (1 standard drink = 0.6 oz pur e alcohol) Depression Answer Date Recorded Patient Health Questionnaire-2 Score 0 04/11/2022 Comments No Sex and Gender Information Value Date Recorded Sex Assigned at Female 12/18/2021 10:14 AM EDT Legal Sex Female 10:14 AM EDT Gender Identity Female 12/18/2021 10:14 AM EDT Sexual Orientation Choose not to disclose 2021 10:14 AM EDT COVID-19 Exposure Response Date Recorded In the last 10 days, have yo u been in contact with someone who was confirmed or suspected to have Coronavirus/COVID-19? Unable to assess 07/12/2022 1:53 PM EDT documented as of this encounter Plan of Treatment Upcoming Encounters Date Type Department Care Team (Late st Contact Info) Description 05/06/2024 3:45 PM EDT Office Visit [facility] MEDICINE [address] [place] [address] Amy Rosa MD [address] [place] [address] documented as of this encounter Visit Diagnoses Not on filedocumented in this encounter Care Teams Research Program Internship Relationship Specialty Start Date End Date Amy Rosa MD [address] [place] [address] PCP - General Family Medicine 04/05/22 documented as of this encounter
--- OUTSIDE RECORDS SUMMARY | 2024-04-01 10:26 | XMS_ITS | Encounter Summary ---
Author Organization [employer] Address [address] [facility] 7 [place] [address] Care Team Providers Care Security Flex Officer Name Role Phone Amy Rosa MD Primary Care Provider [phone] Reason for Visit * Reason Onset Date Comments Med Refill 02/13/2024 Encounter Details Date Type Department Care Team (Late st Contact Info) Description 02/13/2024 Refill [facility] MEDICINE [address] [place] [address] Amy Rosa MD [address] [place] [address] Essential hypertension Social History Tobacco Use Types Packs/Day Years [...] your housing situation today? I have katie sing 11/08/[address] you li [...] Description 05/06/2024 3:45 PM EDT Office Visit [facility] MEDICINE [address] [place] [address] Amy Rosa MD [address] [place] [address] documented as of this encounter Visit Diagnoses Diagnosis Essential hypertension Unspecified essential hypertension documented in this encounter Additional Health Concerns Assessment Noted Time PHQ-9 Depression Total Score: 0 11/08/19 24 2:44 PM EDT documented as of this encounter Care Teams Security Flex Officer Relationship Specialty Start Date End Date Amy Rosa MD [address] [place] [address] PCP - General Family Medicine 04/05/22 documented as of this encounter
--- OUTSIDE RECORDS SUMMARY | 2024-04-01 10:26 | XMS_ITS | Encounter Summary ---
Author Organization [employer] Address [address] [place] [address] 7 [place] [address] Care Team Providers Care Ceramics Artist Name Role Phone Tali Brody MD Primary Care Provider Amy Clark MD Primary Care Provider [phone] Encounter Details Date Type Department Care Team (Late st Contact Info) Description 01/30/2022 Telephone [facility] MED & PEDS [address] [place] [address] Charu Kumar RN Social History Tobacco Use Types Packs/Day Years Used Date Smoking Tobacco: Never Assessed Comments Unknown Sex and Gender Information Value Date Recorded Sex Assigned at Female 12/18/2021 10:14 AM EDT Legal Sex Female 10:14 AM EDT Gender Identity Female 12/18/2021 10:14 AM EDT Sexual Orientation Choose not to disclose 2021 10:14 AM EDT documented as of this encounter Plan of Treatment Upcoming Encounters Date Type Department Care Team (Late Contact Info) Description 05/06/2024 3:45 PM EDT Office Visit [facility] MEDICINE [address] [place] [address] Amy Rosa MD [address] [place] [address] documented as of this encounter Visit Diagnoses Not on filedocumented in this encounter Care Teams Ceramics Artist Relationship Specialty Start Date End Date Tali Brody MD PCP - General Family Medicine 12/09/18 04/04/22 Amy Rosa MD [address] [place] [address] PCP - General Family Medicine 04/05/22 documented as of this encounter
--- OUTSIDE RECORDS SUMMARY | 2024-04-01 10:26 | XMS_ITS | Encounter Summary ---
Author Organization [employer] Address [address] [facility] 7t [place] [address] Care Team Providers Care Flight Engineer Instructor Name Role Phone Amy Rosa MD Primary Care Provider [phone] Encounter Details Date Type Department Care Team (Late st Contact Info) Description 04/11/2022 Orders Only [facility] MEDICINE [address] [place] [address] Danitza Harrison CNM [address] [place] [address] Social History Tobacco Use Types Packs/Day Years [...] was confirmed or suspected to have Coronavirus/COVID-19? No / Unsure 04/11/2022 1:54 PM EST documented as of this encounter Plan of Treatment Upcoming Encounters Date Type Department Care Team (Late st Contact Info) Description 05/06/2024 3:45 PM EDT Office Visit [facility] MEDICINE [address] [place] [address] Amy Rosa MD [address] [place] [address] documented as of this encounter Procedures Procedure Name Priority Date/Time Associated Diagnosis Comments PAP SMEAR Routine 04/02/2022 12:00 AM EST documented in this encounter Results * Pap Smear (04/02/2022 12:00 AM EST) Swab Danitza Harrison [facility] CYTOLOGY ORDERABLES F inal Result [facility] [address] [place] [address], [place] [address] documented in this encounter Visit Diagnoses Not on filedocumented in this encounter Care Teams Flight Engineer Instructor Relationship Specialty Start Date End Date Amy Rosa MD [address] [place] [address] PCP - General Family Medicine 04/05/22 documented as of this encounter
--- OUTSIDE RECORDS SUMMARY | 2024-04-01 10:26 | XMS_ITS | Clinical Summary ---
Author Organization [employer] Address [address] [place] [address] 7 [place] [address] Care Team Providers Care Senior Research Executive Name Role Phone Amy Rosa MD Primary Care Provider Allergies Active Allergy Reactions Criticality Noted Date Comments Amoxicillin Hives 11/03/2018 Sulfamethoxazole-Trimethoprim Rash Low 2023 Clavulanic Acid Hives 11/03/2018 Medications Blood Pressure Monitoring (Omron 3 Series BP Monitor) device USE TO CHECK BLOOD PRESSURE goal <140/90 07/29/19 22 Active Artificial Tears 1.4 % ophthalmic solution USE 1 TO 2 DR0PS INTO THE AFFECTED EYE(S) EVERY HOUR NEEDED 07/29/19 22 Active lidocaine (Lidoderm) 5 % patch APPLY 1 PATCH TOPICALLY TO SKIN, LEAVE ON FOR 12 HOURS AND OFF FOR 12 HOURS DIRECTED 30 patch 3 01/17/20 23 Active atorvastatin (Lipitor) 40 MG tabletIndications :Hyperlipidemia, unspecified hyperlipidemia type TAKE 1 TABLET BY MOUTH EVERY DAY 90 tablet 3 02/07/20 23 Active Black Cohosh 40 MG capsule Take 1 capsule by mouth in the morning. 90 capsule 3 03/28/19 24 Active oxybutynin XL (Ditropan XL) 5 MG 24 hr tabletIndications :Stress incontinence Take 1 tablet (5 mg) by mouth in the morning. Do not crush, chew, or split. 90 tablet 3 04/18/19 24 025 Active chlorthalidone (Hygroton) 25 MG tablet TAKE 1 TABLET BY MOUTH EVERY MORNING 90 tablet 3 07/10/19 24 Active levothyroxine (Synthroid, Levoxyl) 88 MCG tablet TAKE 1 TABLET BY MOUTH EVERY MORNING 90 tablet 3 08/12/19 24 Active meloxicam (Mobic) 15 MG tablet TAKE 1 TABLET BY MOUTH EVERY DAY. 90 tablet 3 11/11/19 24 Active pantoprazole (ProtoNix) 40 MG EC tablet TAKE 1 TABLET BY MOUTH EVERY MORNING 90 tablet 1 12/09/19 24 Active cholecalciferol (Vitamin D High Potency) 25 MCG (1000 UT) capsuleIndication s:Vitamin D deficiency TAKE 1 CAPSULE BY MOUTH EVERY MORNING 90 capsule 3 12/18/19 24 Active white petrolatum gelIndications:Ir ritant dermatitis Apply topically if needed for dry skin. To R foot 212 g 01/02/20 24 Active lisinopril 2.5 MG tabletIndications :Essential hypertension Take 1 tablet (2.5 mg) by mouth Once per day. 90 tablet 3 01/02/20 24 025 Active fluticasone (Flonase) 50 MCG/ACT nasal sprayIndications: Chronic maxillary sinusitis USE 2 SPRAYS IN EACH NOSTRIL EVERY MORNING 48 g 3 01/02/20 24 Active cetirizine (ZyrTEC) 10 MG tabletIndications :Chronic maxillary sinusitis Take 1 tablet (10 mg) by mouth Once per day. 90 tablet 3 01/02/20 24 Active zolpidem (Ambien) 5 MG tabletIndications :Primary insomnia TAKE 1 TABLET BY MOUTH AT BEDTIME NEEDED FOR SLEEP 30 tablet 03/19/19 25 Active terbinafine (LamISIL) 250 MG tablet Take 1 tablet (250 mg) by mouth Once per day for 14 days. 14 tablet 03/27/19 25 025 Active zolpidem (Ambien) 5 MG tabletIndications :Primary insomnia TAKE 1 TABLET BY MOUTH AT BEDTIME NEEDED for SLEEP 30 tablet 02/18/20 24 025 Discontinued Active Problems Problem Noted Date Diagnosed Date Chronic pain of left ankle 11/13/2023 Symptoms, such as flushing, sleeplessness, headache, lack of concentration, associated with the menopause 04/18/2023 Assessment & Plan (04/18/2023 12:36 PM EST): Lalo l[place] ordered 03/28/23, our pharmacy is unable to fill Pt counseled to try and obtain medication on her own Swelling of lower extremity 10/15/2022 Assessment & Plan (04/18/2023 12:35 PM EST): Nl labs 01/2023, will check xrays and hands and feet if she comes in person next time Assessment & Plan (02/04/2023 3:13 PM EST): Check CMP/BNP Cont Chlorthalidone 25mg daily Assessment & Plan (10/15/2022 8:42 AM EDT): Order bilateral lower extremity compression stockings Essential hypertension 04/06/2022 Assessment & Plan (10/15/2022 8:40 AM EDT): Maintenance: needs to start Chlorthalidone again, sent 25mg tablets to pharm BMP: due Lipid Panel: due, on Statin ASCVD Risk: Calculate pending updated labs EKG: Obtain baseline at f/u - Aerobic exercise to reduce BP. Initial goal of 30 min walk 3-5x/week. Increase as tolerated. - low-sodium diet (goal: <2g/day) and heart healthy diet such as DASH to reduce BP and prevent ASCVD. - Home BP monitoring 1-2 x day with goal of <140/90. - Seek immediate medical attention for chest pain, palpitations, SOB, syncope, or sudden changes in mental status. - Do not change or discontinue current prescriptions without first consulting health care provider Assessment & Plan (04/12/2022 9:47 AM EST): Maintenance: chlorthalidone 25mg BMP: Lipid Panel: today ASCVD Risk: Calculate pending updated labs EKG: Obtain baseline at f/u - Aerobic exercise to reduce BP. Initial goal of 30 min walk 3-5x/week. Increase as tolerated. - low-sodium diet (goal: <2g/day) and heart healthy diet such as DASH to reduce BP and prevent ASCVD. - Home BP monitoring 1-2 x day with goal of <140/90. - Seek immediate medical attention for chest pain, palpitations, SOB, syncope, or sudden changes in mental status. - Do not change or discontinue current prescriptions without first consulting health care provider Itching of ear 04/06/2022 Anxiety 03/13/2018 Knee pain 03/13/2018 Severe obesity 12/10/2017 Assessment & Plan (04/12/2022 9:47 AM EST): Exercise 10-30 minutes daily as tolerated Loss of sense of smell 08/15/2017 Dry eyes 07/08/2017 Excessive and frequent menstruation 07/08/2017 Assessment & Plan (02/04/2023 3:13 PM EST): Has IUD in place Use transexamic acid if bleeding is heavy Pelvic US ordered Assessment & Plan (10/15/2022 8:40 AM EDT): Controlled with IUD in place Gastroesophageal reflux disease 07/08/2017 Assessment & Plan (10/15/2022 8:40 AM EDT): Continue Pantoprazole 40mg daily Recurrent acute sinusitis 07/08/2017 Obstructive sleep apnea syndrome 05/21/2017 Assessment & Plan (10/15/2022 8:41 AM EDT): Continue CPAP with goal of > 4 hours usage nightly Periodic limb movement disorder 05/21/2017 Chronic maxillary sinusitis 12/10/2016 Assessment & Plan (10/15/2022 8:39 AM EDT): Takes allergy meds, FLonase Daytime somnolence 12/10/2016 Chronic low back pain 07/29/2012 Assessment & Plan (04/12/2022 9:48 AM EST): Continue heat, stretches, patches 1. Does the patient have a mobility limitation that significantly impairs their ability to participate in any or all mobility related activities of daily living (MRADLs) such as toileting, feeding, dressing, grooming and bathing in customary locations in the home? No 2. Can the patient's mobility limitation be sufficiently resolved with the use of a cane or crutch? No 3. Will the functional mobility deficit be sufficiently resolved with the use of a walker? Yes 4. Is the patient able to safely use the walker? Yes 5. If a walker with wheels is needed, does the patient have upper body weakness which prevents them from picking up the walker? NO 6. If a walker with wheels is needed, does the patient have limited use of one hand, neurological disorders or severe obesity? NO Tear of meniscus of knee 07/29/2012 Depressive disorder 12/25/2011 Eczema 11/16/2011 Stress incontinence 11/16/2011 Assessment & Plan (10/15/2022 8:39 AM EDT): Kegels Limit fluids before bed Continue incontinence products for hygiene Assessment & Plan (04/12/2022 9:47 AM EST): Kegels Limit fluids before bed Continue incontinence products for hygeien Hypothyroidism 10/25/2011 Assessment & Plan (10/15/2022 8:39 AM EDT): On Synthroid 88mcg Will check TSH Pure hypercholesterolemia 08/23/2011 Assessment & Plan (04/12/2022 9:48 AM EST): Continue Atorvastatin Check lipids today Encounters Date Type Department Care Team Description 03/27/2024 Orders Only [facility] [address] [place] [phone] Amy Rosa MD Candidal skin infection (Primary Dx) 03/19/2024 Refill [facility] [address], [place] [phone] Amy Rosa MD Primary insomnia 03/17/2024 Telephone [facility] [address] [place] [phone] Amy Rosa MD [employer] (Underwear, protective Procare XLRG) 02/18/2024 Refill [facility] [address] [place] [address] Amy Rosa MD Primary insomnia 02/17/2024 Telephone [facility] [address] [place] [phone] Amy Rosa MD Durable Medical Equipment (L&C Form: Pull ups) 02/13/[address] [address] Amy Rosa MD Essential hypertension 01/21/2024 Refill [facility] [address] [place] [address] Amy Rosa MD Primary insomnia 01/08/2024 3:00 PM EST Telemedicine [address] [address] Tory Narayanan RN Wound of right foot 01/08/[address] [address] Tory Narayanan RN Derm Appointment 01/08/2024 Travel 01/02/2024 11:00 AM EST Office Visit [address] [address] Amy Rosa MD Tinea pedis of right foot (Primary Dx); Irritant dermatitis; Chronic maxillary sinusitis; Essential hypertension 01/02/2024 Travel 01/01/[address] [address] Amy Rosa MD Nurse Triage from Last 3 Months Immunizations Name Administration Dates Next Due Hep B, adult 11/28/2000,11/28/1999,09/28/1999 Influenza injectable quadriv alent IIV4 with preservative 11/03/2018,12/10/2017,11/08/2016,2015,12/08/2014 Influenza injectable quadriv alent preservative free 12/03/2022,12/06/2021,11/23/2020,2019 Influenza, IIV3, injectable 01/25/2014 Influenza, Split (incl. javier fied surface antigen) 11/25/2012,10/25/2011 Influenza, seasonal, injecta ble, preservative free 11/08/2023 MMR 10/04/2010 TD (adult), 2 Lf tetanus tox oid, preservative free, adsorbed 04/28/2008,01/04/1999 Tdap 07/12/2022,12/25/2011 Zoster, Recombinant 07/12/2022,05/10/2022 Social History Tobacco Use Types Packs/Day Years Used Date Smoking Tobacco: Former Cigarettes Smokeless Tobacco: Never Tobacco Cessation:Counseling Given: Not Answered Alcohol Use Standard Drinks/Week Comments Never 0 [...] not to disclose 2021 10:14 AM EDT Last Filed Vital Signs Vital Sign Reading Time Taken Comments Blood Pressure 158/84 01/02/2024 11:02 AM EST Pulse 91 01/02/2024 11:02 AM EST Temperature 36.6 ??C (97.8 ??F) 01/02/2024 11:[address] Respiratory Rate 18 01/02/2024 11:02 AM EST Oxygen Saturation 99% 11/08/2023 2:35 PM EDT Inhaled Oxygen Concentration - - Weight 144 kg (318 lb) 01/02/2024 11:02 AM EST Height 157.5 cm (5' 2 ) 01/02/2024 11:02 AM EST Body Mass Index 58.16 01/02/2024 11:02 AM EST Plan of Treatment Upcoming Encounters Date Type Department Care Team (Late st Contact Info) Description 05/06/2024 3:45 PM EDT Office Visit [facility] [address] [place] [address] Amy Rosa MD [address] [place] [address] Health Maintenance Due Date Last Done Comments CT Colonography 1969 Colonoscopy 1969 Colorectal Cancer Screening 1969 FIT DNA/Cologuard 1969 FIT 1969 FOBT 1969 HIV Screening 1970 Sigmoidoscopy 1969 Alcohol/Substance Use Screening 1981 Hepatitis C Screening 11/16/1987 Pneumococcal Vaccine: 50+ Years (1 of 1 - PCV) 11/16/2019 Mammogram 06/30/2023 06/29/2022, 06/18, 06/22/2021, Additional history exists COVID-19 Vaccine ( - season) 2023 Depression Screening 11/07/2024 11/08/2023, 11/08/19 24 SDOH Screening 11/07/2024 11/08/2023 Tobacco Screening 01/01/2025 01/02/2024 Cervical Cancer Screening 04/04/2025 HPV/Cotest 04/04/2025 04/04/2022, 02/13/2017 Pap Smear 04/04/2025 04/04/2022, 03/21, 02/13/2017 Lipid Panel 04/12/2027 04/12/2022, 03/0 04/2021, 11/09/2019 DTaP/Tdap/Td Vaccines (3 - Td or Tdap) 07/12/2032 07/12/2022, 12/25/2011, 04/28/2008, Additional history exists RSV Patients and Patients Aged 60 years or older (1 - 1-dose 75+ series) 2044 Hepatitis B Vaccines Completed 11/28/2000, 11/28/1999, 09/28/1999 Zoster Vaccines Completed 07/12/2022, 05/10/2022 Influenza Vaccine Completed 11/08/2023, , 12/06/2021, Additional history exists HIB Vaccines Aged Out No longer eligi ble based on patient's age to complete this topic HPV Vaccines Aged Out No longer eligi ble based on patient's age to complete this topic Hepatitis A Vaccines Aged Out No long er eligible based on patient's age to complete this topic IPV Vaccines Aged Out No longer eligi ble based on patient's age to complete this topic Meningococcal Vaccine Aged Out No bhavik meron eligible based on patient's age to complete this topic RSV under 20 months Aged Out No longe r eligible based on patient's age to complete this topic Rotavirus Vaccines Aged Out No longer eligible based on patient's age to complete this topic Procedures Procedure Name Priority Date/Time Associated Diagnosis Comments BI MAMMOGRAM SCREENING TOMOSYNTHESIS BILATERAL Routine 06/29/2022 3:11 PM EDT LIPID PANEL, STANDARD Routine 04/12/2022 11:45 AM EST Pure hypercholesterolemia IMAGE-GUIDED PAP W/AGE BASED SCR PROTOCOLS Routine 04/04/2022 12:00 AM EST from Last 3 Months or Most Recently Relevant to Health Maintenance Results * BI Mammogram Screening Tomosynthesis Bilateral (06/29/2022 3:11 PM EDT) Anatomical Region Laterality Modality Breast Bilateral Mammography 06/29/2022 3:11 PM EDT Narrative 07/02/2022 12:57 PM EDT ? [facility] [place] ? [address] ?[place] [address] ? Mammography Report ? Signed ? Patient: Imer Abreu,Latonia ?MR#: ?? [id number] ? : 1970 ?Acct:[id number] ? Age/Sex: 51 / F ?ADM Date: 05/12/23 ? Loc: HO.MAMMO ? Attending Dr: Amy Rosa MD ? Ordering Physician: Amy Rosa ?Results: 1Negative ? Date of Service: 06/29/22 ?Follow Up: 1 Year From Orig ?? inal Mammogram ? Procedure(s): MM tomosynthesis screening BI ?? Accession Number(s): [id number] ? cc: Amy Rosa ? EXAMINATION: ?? MM SCREENING DIGITAL BREAST TOMOSYNTHESIS, BILATERAL ? CLINICAL INFORMATION: ? Screening. Asymptomatic. ? The lifetime risk of breast cancer based on the Tyrer-Cuzick Model is ?? 6%. ? COMPARISON: ?? Mammography: 06/22/2021, 05/21/2017, 05/14/2016 (baseline). ? TECHNIQUE: ?? Digital breast tomosynthesis is performed in both the craniocaudal and ?? mediolateral oblique views along with computer-aided detection (CAD). ?? Synthesized 2D images are generated from the tomosynthesis. ??Additional ?? bilateral CC and views are provided. ? FINDINGS: ?? There are scattered areas of fibroglandular density (ACR BI-RADS breast ?? composition Category b). ? There are no significant masses, abnormal calcifications, or other ?? abnormalities. ??Parenchymal pattern is similar to prior studies. No ?? architectural abnormality. The axilla and skin contours are ?? unremarkable. No significant changes. ? MM/MM tomosynthesis screening BI ?? IMPRESSION: ?? No mammographic evidence of malignancy. ? ASSESSMENT: ? BI-RADS 1: Negative ? RECOMMENDATION: ?? Routine annual mammography screening. ? This patient's information was entered into a reminder system with a ?? target due date for their next mammogram. ? Dictated By: ?David Veras MD ? Signed By: ?<Electronically signed by David Veras MD in OV> ?/15/ 125 ? DD/ 1511 ? TD/TT: ? Steamfitter Apprentice: MULTANI ? Procedure Note Donotuseinterpreter, Image - [facility] [address] [place], [place] [address] Mammography Report Signed Patient: Paul Parker#: [id number] : 1970Acct:[id number] Age/Sex: 51 / FADM Date: 06/29/22 Loc: HO.MAMMO Attending Dr: Amy Rosa MD Ordering Physician: Dayana Rosaults: 1Negative Date of Service: 06/29/22Follow Up: 1 Year From Orig inal Mammogram Procedure(s): MM tomosynthesis screening BI Accession Number(s): [id number] cc: Amy Rosa EXAMINATION: MM SCREENING DIGITAL BREAST TOMOSYNTHESIS, BILATERAL CLINICAL INFORMATION: Screening. Asymptomatic. The lifetime risk of breast cancer based on the Tyrer-Cuzick Model is 6%. COMPARISON: Mammography: 06/22/2021, 05/21/2017, 05/14/2016 (baseline). TECHNIQUE: Digital breast tomosynthesis is performed in both the craniocaudal and mediolateral oblique views along with computer-aided detection (CAD). Synthesized 2D images are generated from the tomosynthesis. Additional bilateral CC and views are provided. FINDINGS: There are scattered areas of fibroglandular density (ACR BI-RADS breast composition Category b). There are no significant masses, abnormal calcifications, or other abnormalities. Parenchymal pattern is similar to prior studies. No architectural abnormality. The axilla and skin contours are unremarkable. No significant changes. MM/MM tomosynthesis screening BI IMPRESSION: No mammographic evidence of malignancy. ASSESSMENT: BI-RADS 1: Negative RECOMMENDATION: Routine annual mammography screening. This patient's information was entered into a reminder system with a target due date for their next mammogram. Dictated By: David Veras MD Signed By: <Electronically signed by David Veras MD in OV> 07/02/22 1255 DD/ 1511 TD/TT: Steamfitter Apprentice: MULTANI [facility] External Provider IMG BI PROCEDURES Final Result * (ABNORMAL) Lipid Panel, Standard (04/12/2022 11:45 AM EST) Cholesterol, Total 197 <200 mg/dL [facility] HDL Cholesterol 50 > OR = 50 mg/dL [facility] Triglycerides 92 <150 mg/dL [facility] LDL Cholesterol 127(H) mg/dL (calc) [facility] Comment: Reference range: <100 Desirable range <100 mg/dL for primary prevention; ?? <70 mg/dL for patients with CHD or diabetic patients with > or = 2 CHD risk factors. LDL-C is now calculated using the Selvin-El calculation, which is a validated novel method providing better accuracy than the Friedewald equation in the estimation of LDL-C. Selvin SS et al. ISIDRO. 2013;310(19): 4819-2587 (http://education.Soraa/faq/PUE164) Chol/HDLC Ratio 3.9 <5.0 (calc) [facility] Non-HDL Cholesterol 147(H) <130 mg/dL (calc) [facility] Comment: For patients with diabetes plus 1 major ASCVD risk factor, treating to a non-HDL-C goal of <100 mg/dL (LDL-C of <70 mg/dL) is considered a therapeutic option. Blood Venous blood specimen / Unknown 04/12/2022 11:45 AM EST 04/12/2022 11:46 AM EST Narrative [facility] - 04/13/2022 4:14 AM EST FASTING:YES FASTING: YES us Amy Rosa MD LAB BLOOD ORDERABLES Final Res ult [facility] [address] [facility], [address], [place] [address] [facility] [address] [facility], (Nl2) [place] [address] * (ABNORMAL) Image-Guided Pap with Age-Based Screening Protocols (04/04/2022 12:00 AM EST) Comment [facility] Comment: This order for age-based cervical cancer and STI screening follows ACOG guidelines(PB 168, 140, SIQ562). See individual assays for performing site location. Clinical Information: None given [facility] LMP: NONE GIVEN [facility] Prev. PAP: NONE GIVEN [facility], [facility] Prev. BX: NONE GIVEN [facility] SOURCE: None given [facility] Statement Of Adequacy: [facility] Comment: Satisfactory for evaluation. Endocervical/transformation zone component present. General Categorization: EPITHELIAL CELL ABNORMALITY(A) [facility] Interpretation/ Result: Atypical Squamous Cells of Undetermined Significance (ASC-US)(A) [facility] COMMENT: This Pap test has been evaluated with computer assisted technology. [facility] Cytotechnologis t: [facility] Comment: DMM, CT(ASCP) CT screening location: [address] ??[address] PATHOLOGIST: [facility] Comment: Yuliya Cintron M.D., Ph.D., Board Certified in Anatomic Pathology and Cytopathology (electronic signature) Consulting Pathologist [facility] [address] [place], [place] [address] (Always Message) [facility], [facility] Comment: EXPLANATORY NOTE: The Pap is a screening test for cervical cancer. It is not a diagnostic test and is subject to false negative and false positive results. It is most reliable when a satisfactory sample, regularly obtained, is submitted with relevant clinical findings and history, and when the Pap result is evaluated along with historic and current clinical information. HPV nRNA E6/E7 Not Detected Not Detected [facility] Comment: Methodology: Precision Machinist-Mediated Amplification This assay detects E6/E7 viral messenger RNA (mRNA) from 14 high-risk HPV types (16,18,31,33,35,39,45,51,52,56,58,59,66,68). Cervical sources are required for HPV testing. If a vaginal source from a patient who has had a total hysterectomy with removal of cervix was submitted, please contact the testing laboratory for alternative testing options. For additional information, please refer to http://education.Instabank/faq/DKU557t1 (This link if provided for information/ educational purposes only.) 04/04/2022 04/05/2022 8:0 6 AM EST Narrative [facility] - 04/11/2022 12:00 PM EST FASTING: UNKNOWN Danitza Harrison CNM LAB BLOOD ORDERABLES Lidia hansen Result [facility] [address] [facility], [facility], [place] [address] [facility] [address] [place] [phone] [facility] [address] [facility], ([address]) [place] [address] from Last 3 Months or Most Recently Relevant to Health Maintenance Insurance [address] [place], [place] [id number] Care Teams Senior Research Executive Relationship Specialty Start Date End Date Amy Rosa MD [address] [place] [phone] PCP - General Family Medicine 04/05/22
--- OUTSIDE RECORDS SUMMARY | 2024-04-01 10:26 | XMS_ITS | Encounter Summary ---
Author Organization [employer] Address [address] [place] [address] 7 [place] [address] Care Team Providers Care Tea Leaf Reader Name Role Phone Amy Rosa MD Primary Care Provider [phone] Encounter Details Date Type Department Care Team (Late st Contact Info) Description 07/18/2022 [facility] Health Information Management [address] [place] [address] Amy Rosa MD [address] [place] [address] Social History Tobacco Use Types Packs/Day Years [...] Description 05/06/2024 3:45 PM EDT Office Visit [facility] [address] [place] [address] Amy Rosa MD [address] [place] [address] documented as of this encounter Visit Diagnoses Not on filedocumented in this encounter Care Teams Tea Leaf Reader Relationship Specialty Start Date End Date Amy Rosa MD [address] [place] [address] PCP - General Family Medicine 04/05/22 documented as of this encounter
--- OUTSIDE RECORDS SUMMARY | 2024-04-01 10:26 | XMS_ITS | Encounter Summary ---
Author Organization [employer] Address [address] [facility] [address] [place] [address] Care Team Providers Care Services Clerk Name Role Phone Amy Rosa MD Primary Care Provider [phone] Encounter Details Date Type Department Care Team (Late Contact Info) Description 06/08/2022 Abstract [facility] [address] [place] [phone] Amy Rosa MD [address] [place], [place] [phone] Social History Tobacco Use Types Packs/Day Years [...] suspected to have Coronavirus/COVID-19? No / Unsure 05/10/2022 1:36 PM EDT documented as of this encounter Plan of Treatment Upcoming Encounters Date Type Department Care Team ([facility] Contact Info) Description 05/06/2024 3:45 PM EDT Office Visit [facility] [address] [place] [phone] Amy Rosa MD [address] [place], [place] [phone] documented as of this encounter Visit Diagnoses Not on filedocumented in this encounter Care Teams Services Clerk Relationship Specialty Start Date End Date Amy Rosa MD [address] [place], [place] [phone] PCP - General Family Medicine 04/05/22 documented as of this encounter
--- OUTSIDE RECORDS SUMMARY | 2024-04-01 10:26 | XMS_ITS | Encounter Summary ---
Author Organization [employer] Address [address] [facility] 7 [place] [address] Care Team Providers Care Housekeeper Child Care Name Role Phone Amy Rosa MD Primary Care Provider [phone] Reason for Visit * Reason Onset Date Comments Med Refill 08/20/2023 Encounter Details Date Type Department Care Team (Late st Contact Info) Description 08/20/2023 Refill [facility] MED[facility] [address] [place] [address] Amy Rosa MD [address] [place] [address] Stress incontinence; Primary insomnia Social History Tobacco Use Types Packs/Day Years [...] Description 05/06/2024 3:45 PM EDT Office Visit [facility] [address] [place] [address] Amy Rosa MD [address] [place] [address] documented as of this encounter Visit Diagnoses Diagnosis Stress incontinence Female stress incontinence Primary insomnia Persistent disorder of initiating or maintaining sleep documented in this encounter Care Teams Housekeeper Child Care Relationship Specialty Start Date End Date Amy Rosa MD [address] [place], [place] [phone] PCP - General Family Medicine 04/05/22 documented as of this encounter
--- OUTSIDE RECORDS SUMMARY | 2024-04-01 10:26 | XMS_ITS | Encounter Summary ---
Author Organization [employer] Address [address] [place] [address] 7t [place] [address] Care Team Providers Care Supervisor Uranium Processing Name Role Phone Amy Rosa MD Primary Care Provider [phone] Encounter Details Date Type Department Care Team (Late Contact Info) Description 05/16/2022 Abstract [facility]INE [address] [place] [phone] Carmen Wright RN [address] [place] [address] Social History Tobacco Use Types Packs/Day Years [...] Visit [facility] [address] [place] [phone] Amy Rosa MD [address] [place] [address] documented as of this encounter Visit Diagnoses Not on filedocumented in this encounter Care Teams Supervisor Uranium Processing Relationship Specialty Start Date End Date Amy Rosa MD [address] [place] [address] PCP - General Family Medicine 04/05/22 documented as of this encounter
--- OUTSIDE RECORDS SUMMARY | 2024-04-01 10:26 | XMS_ITS | Encounter Summary ---
Author Organization [employer] Address [address] [place] [address] 7 [place] [address] Care Team Providers Care Chocolate Coater Name Role Phone Amy Rosa MD Primary Care Provider [phone] Reason for Referral * Consultation (Routine) - Authorized Specialty Diagnoses / Procedures Referred By Contpatti t Referred To Contact Dermatology Diagnoses Candidal skin infection Amy Rosa MD [address] [place] [address] Phone: tel: fax: Referral ID Status Reason Start Date Expiration Date Visits Requested Visits Authorized [id number] Authorized Specialty Services Required 03/30/2024 03/30/2025 1 1 Encounter Details Date Type Department Care Team (Late st Contact Info) Description 03/27/2024 Orders Only [facility] MEDICINE [address] [place], [place] [phone] Amy Rosa MD [address] [place], [place] [phone] Candidal skin infection (Primary Dx) Social History Tobacco Use Types Packs/Day Years [...] Description 05/06/2024 3:45 PM EDT Office Visit [facility] MEDICINE [address] [place] [address] Amy Rosa MD [address] [place] [address] Scheduled Referrals Name Type Priority Associated Diagnoses Orde r Schedule Referral to [facility] Derm Skin Adult Outpatient Referral Routine Candidal skin infection Expected: 03/30/2024 (Approximate), Expires: 03/30/2025 documented as of this encounter Visit Diagnoses Diagnosis Candidal skin infection- Primary documented in this encounter Additional Health Concerns Assessment Noted Time PHQ-9 Depression Total Score: 0 11/08/19 24 2:44 PM EDT documented as of this encounter Care Teams Chocolate Coater Relationship Specialty Start Date End Date Amy Rosa MD [address] [place] [address] PCP - General Family Medicine 04/05/22 documented as of this encounter
--- OUTSIDE RECORDS SUMMARY | 2024-04-01 10:26 | XMS_ITS | Encounter Summary ---
Author Organization [employer] Address [address] [facility] 7t [place] [address] Care Team Providers Care Associate Professor Of Economics Name Role Phone Amy Rosa MD Primary Care Provider [phone] Encounter Details Date Type Department Care Team ([facility] st Contact Info) Description 12/19/2023 Orders Only [facility] MEDICINE [address] [place] [address] Amy Rosa MD [address] [place] [address] Cellulitis and abscess of foot (Primary Dx) Social History Tobacco Use Types [...] is your housing situation today? I have katienuha jones 11/08/[address] you [...] Description 05/06/2024 3:45 PM EDT Office Visit [facility] MED[facility]INE [address] [place] [address] Amy Rosa MD [address] [place] [address] documented as of this encounter Visit Diagnoses Diagnosis Cellulitis and abscess of foot- Primary Cellulitis and abscess of foot, except toes documented in this encounter Additional Health Concerns Assessment Noted Time PHQ-9 Depression Total Score: 0 11/08/19 24 2:44 PM EDT documented as of this encounter Care Teams Associate Professor Of Economics Relationship Specialty Start Date End Date Amy Rosa MD [address] [place] [phone] PCP - General Family Medicine 04/05/22 documented as of this encounter
--- OUTSIDE RECORDS SUMMARY | 2024-04-01 10:26 | XMS_ITS | Encounter Summary ---
Author Organization [employer] Address [address] [facility] 7t [place] [address] Care Team Providers Care Rag Sorter And Cutter Name Role Phone Amy Rosa MD Primary Care Provider [phone] Reason for Visit * Reason Comments Med Refill Encounter Details Date Type Department Care Team (Late st Contact Info) Description 03/19/2024 Refill [facility] PEDS [address] [place], [place] [phone] Amy Rosa MD [address] [place] [address] Primary insomnia Social History Tobacco Use Types [...] Description 05/06/2024 3:45 PM EDT Office Visit [facility] MEDICINE [address] [place] [address] Amy Rosa MD [address] [place] [address] documented as of this encounter Visit Diagnoses Diagnosis Primary insomnia Persistent disorder of initiating or maintaining sleep documented in this encounter Additional Health Concerns Assessment Noted Time PHQ-9 Depression Total Score: 0 11/08/19 24 2:44 PM EDT documented as of this encounter Care Teams Rag Sorter And Cutter Relationship Specialty Start Date End Date Amy Rosa MD [address] [place] [address] PCP - General Family Medicine 04/05/22 documented as of this encounter
--- OUTSIDE RECORDS SUMMARY | 2024-04-01 10:26 | XMS_ITS | Encounter Summary ---
Author Organization [employer] Address [address] [facility] 7 [place] [address] Care Team Providers Care Resaw Feeder Name Role Phone Amy Rosa MD Primary Care Provider Reason for Visit * Reason Onset Date Comments Med Refill 09/13/2023 Encounter Details Date Type Department Care Team (Late st Contact Info) Description 09/13/2023 Refill [facility] MEDICINE [address] [place] [address] Amy Rosa MD [address] [place] [address] Vitamin D deficiency Social History Tobacco Use Types Packs/Day Years [...] Description 05/06/2024 3:45 PM EDT Office Visit [facility] MEDICINE [address] [place], [place] [phone] Amy Rosa MD [address] [place] [address] documented as of this encounter Visit Diagnoses Diagnosis Vitamin D deficiency documented in this encounter Care Teams Resaw Feeder Relationship Specialty Start Date End Date Amy Rosa MD [address] [place] [address] PCP - General Family Medicine 04/05/22 documented as of this encounter
--- OUTSIDE RECORDS SUMMARY | 2024-04-01 10:26 | XMS_ITS | Encounter Summary ---
Author Organization [employer] Address [address] [facility] 7 [place] [address] Care Team Providers Care Finisher [employer] Name Role Phone Amy Rosa MD Primary Care Provider [phone] Reason for Visit * Reason Onset Date Comments Med Refill 06/13/2023 Encounter Details Date Type Department Care Team ([facility] st Contact Info) Description 06/13/2023 Refill [facility] MEDICINE [address] [place] [address] Name, MD Henry [address] [place] [address] Primary insomnia Social History Tobacco Use Types [...] Description 05/06/2024 3:45 PM EDT Office Visit [facility] MEDICINE [address] [place], [place] [phone] Amy Rosa MD [address] [place] [phone] documented as of this encounter Visit Diagnoses Diagnosis Primary insomnia Persistent disorder of initiating or maintaining sleep documented in this encounter Care Teams Finisher [employer] Relationship Specialty Start Date End Date Amy Rosa MD [address] [place], [place] [phone] PCP - General Family Medicine 04/05/22 documented as of this encounter
[2024-04-01 12:02] LABS: Alanine Aminotransferase 30 U/L (0-31); Albumin Level 4.1 g/dL (3.5-5.0); Alkaline Phosphatase 68 U/L (39-117); Anion Gap 11 (12-20); Aspartate Amino Transferase 27 U/L (5-31); Bilirubin Total 0.6 mg/dL (0.0-1.0); Blood Urea Nitrogen 12 mg/dL (9-16); Carbon Dioxide 26 mmol/L (22-29); Chloride 106 mmol/L (96-108); Estimated Glomerular Filt Rate > 60; Glucose Random 137 mg/dL (60-115); Sodium 139 mmol/L (135-145); Total Protein 7.8 g/dL (6.5-8.0)
== END 2024-04-01 09:20 | disposition home or self-care (01) ==
LOC: HO.HHCL 09:19
PROVIDERS: Visit Provider General Practice
DX: B35.3 Tinea pedis (principal)
CPT/HCPCS: 36415; 80053

== ENCOUNTER 2024-04-23 15:52 | Outpatient (REF) | payer MEDICAID, SELFPAY ==
--- NOTE | ~2024-04-23 | XR_ITS ---
EXAMINATION: XR CHEST CLINICAL INFORMATION: Patient with 2-week duration of bilateral posterior chest wall pain COMPARISON: Chest 05/30/2020 TECHNIQUE: 2 views of the chest were obtained. FINDINGS: No significant abnormality is noted involving the heart, lungs, mediastinum, bony thorax or soft tissues. XR/XR chest 2V IMPRESSION: Unremarkable chest examination. Electronically signed by: Saul Dotson MD 04/23/2024 04:46 PM EST
== END 2024-04-23 15:53 | disposition home or self-care (01) ==
LOC: HO.HHCX 15:52
PROVIDERS: Visit Provider Family Medicine
DX: R07.89 Other chest pain (principal)
CPT/HCPCS: 71046

== ENCOUNTER → 2024-04-23 15:52 | Outpatient (BNV) | payer MEDICAID, SELFPAY | PROVIDERS: Visit Provider Radiology Diagnostic Radiology | DX: R07.89 Other chest pain (principal) | CPT/HCPCS: 71046 ==

== ENCOUNTER 2024-04-23 16:04 | Outpatient (REF) | payer MEDICAID, SELFPAY ==
[2024-04-23 18:24] LABS: Alanine Aminotransferase 36 U/L (0-31); Albumin Level 4.2 g/dL (3.5-5.0); Alkaline Phosphatase 74 U/L (39-117); Anion Gap 12 (12-20); Aspartate Amino Transferase 25 U/L (5-31); Bilirubin Total 0.7 mg/dL (0.0-1.0); Blood Urea Nitrogen 11 mg/dL (9-16); Calcium 9.3 mg/dL (8.4-10.2); Carbon Dioxide 27 mmol/L (22-29); Chloride 104 mmol/L (96-108); Estimated Glomerular Filt Rate > 60; Glucose Random 97 mg/dL (60-115); Lactate Dehydrogenase 236 U/L (122-220); Potassium 3.9 mmol/L (3.3-5.1); Sodium 139 mmol/L (135-145); Total Protein 8.2 g/dL (6.5-8.0)
[2024-04-27 21:23] LABS: Aldolase 4.7 U/L (<=8.1)
== END 2024-04-23 16:05 | disposition home or self-care (01) ==
LOC: HO.HHCL 16:04
PROVIDERS: Visit Provider Family Medicine
DX: R07.89 Other chest pain (principal)
CPT/HCPCS: 36415; 80053; 82085; 82550; 83615

== ENCOUNTER 2024-06-09 15:46 | Outpatient (AMB) | payer MEDICAID, SELFPAY ==
[2024-06-09 15:59] VITALS: BP 140/82; PULSE 78; O2SAT 99; BMI 58.5
--- NOTE | 2024-06-09 15:59 | MHC.OFFVIS ---
Vital Signs 06/09/24 15:59 Height 5 ft 2 in Weight 319 lb 10.724 oz BMI 58.5 BP 140/82 H Blood Pressure Location Lt brachial Position Sitting Pulse 78 Pulse Source Pulse Oximeter Pulse Oximetry (%) 99 Oxygen Delivery Method Room Air Intake Visit Reasons: Allergic Rhinitis Intake Note: pt is here for follow up and states she is doing well, and would like a replacement machine sent to [facility] Stove Bottom Worker Required: No Allergies sulfamethoxazole [From Bactrim] Adverse Reaction (Verified 06/09/24 16:28) rash trimethoprim [From Bactrim] Adverse Reaction (Verified 06/09/24 16:28) rash Medication List - Last Reconciled 06/09/24 by Breonna Canseco MD atorvastatin 40 mg PO DAILY cetirizine 10 mg PO DAILY PRN chlorthalidone 25 mg PO QAM cholecalciferol (vitamin D3) 25 mcg PO DAILY fluticasone propionate 50 mcg/actuation 2 sprays intranasal QAM levothyroxine 88 mcg PO DAILY lidocaine 5% patches topical meloxicam 15 mg PO DAILY pantoprazole 40 mg PO DAILY zolpidem 5 mg PO BEDTIME Do you need a note to return to daycare/school/sports/work: No HPI HPI Allergic Rhinitis: Details: 53 years old very pleasant female who is a case of super morbid obesity and obstructive sleep apnea, comes after 6 months for follow-up. She has been using CPAP very regularly every night and sleeps well. She denies any daytime sleepiness. Her CPAP device is about 6 years old and is making some noise at night. She would like to have a replacement. She remains morbidly obese. Trying to lose weight. This time she has lost about 6 lb compared to the last visit. She is not on any special weight reduction program . [facility] Medical History Allergic rhinitis CASSIDY on CPAP Morbid obesity Anxiety PLMD (periodic limb movement disorder) Dry eyes CASSIDY (obstructive sleep apnea) GERD (gastroesophageal reflux disease) Menorrhagia with regular cycle Iron deficiency Class 3 severe obesity due to excess calories in adult Chronic midline low back pain Anosmia Depression Stress incontinence Hypothyroid Eczema Right knee meniscal tear Pure hypercholesterolemia Family History Mother Diabetes Father Cancer Son Diabetes Social History Patient Tobacco Use Status: Former Tobacco user Review of Systems Const All systems reviewed & are unremarkable except as noted in HPI and below Eyes Reports no additional complaints ENT Reports nasal congestion (OFF AND ON) and Reports nasal discharge Card Reports no additional complaints Resp Reports no additional complaints GI Reports constipation and Reports heartburn (GERD SYMPTOMS CONTROLLED WITH MED) Reports no additional complaints Musc Reports no additional complaints Skin/Breast Reports system reviewed and no additional complaints, except as documented Neuro Reports no additional complaints and Reports restless legs (HAS IMPROVED AND SHE IS OF IRON SUPPLEMENTS) Psych Reports no additional complaints Endo Reports other (HYPOTHYROIDISM BEING TREATED WITH MED) Physical Exam Vital Signs: Last Vital Signs Pulse 78 06/09/24 15:59 BP 140/82 H 06/09/24 15:59 Pulse Ox 99 06/09/24 15:59 Oxygen Delivery Method Room Air 06/09/24 15:59 BMI result Body Mass Index 58.5 Const Other: OBESE BUT VERY HEALTHY LOOKING. General: comfortable, no acute distress, alert and awake Orientation/consciousness: patient oriented x3 HEENT Head: Yes normal to inspection General nose exam: No nasal polyps present and No nasal discharge present Face and sinus: Yes sinuses nontender Mouth: oropharynx normal Throat: Yes posterior oropharynx normal Eyes General: appearance normal, both eyes and all related structures Neck Neck: Yes normal visual inspection, Yes no lymphadenopathy, Yes trachea midline and Yes no JVD Thyroid: Thyroid normal Chest Chest palpation & inspection: normal inspection of the chest, normal palpation of entire chest wall and no tenderness Resp Effort & Inspection: normal respiratory effort Auscultation: clear to auscultation bilaterally, no crackles and no wheezes Cardio Palpation: normal PMI Rate: regular rate Rhythm: regular rhythm Heart sounds: no gallops and no murmurs Peripheral pulses: Peripheral pulses 2+ throughout GI Palpation (GI): Soft to palpation, nontender, No hepatosplenomegaly present, no masses and Other GI palpation findings present (ABDOMEN IS OBESE AND SOMEWHAT PROTUBERANT) Auscultation: normal bowel sounds Back/Spine/Pelvis Thoracic/Lumbar Spine: thoracic and lumbar spine normal to inspection and thoraco-lumbar ROM limited Skin General skin exam: no rashes or lesions noted Neuro General: patient oriented x3 and no focal motor deficits Cranial nerves: Yes CN's II-XII intact bilaterally Extrem General: Yes normal to inspection, Yes no calf tenderness and Yes edema (TRACE OF PITTING EDEMA OF BOTH LEGS) Psych Appearance: grossly normal and well kempt Speech and movement: Normal speech and movement present Results Reviewed Results Reviewed: Compliance report is reviewed. She has used 30/30 nights,. 100% Average use per night. 7 hours 23 minutes Pressure 8 cm. Very little air leak. Residual AHI 1.5 Assessment & Plan Assessment & Plan (1) Morbid obesity: Comment: SHE REMAINS MORBIDLY OBESE, HAS LOST A FEW LBS FROM LAST VISIT . SOME OF THE WEIGHT IS DUE TO FLUID RETENTION . SHE HAS 1+ PITTING EDEMA. Code(s): E66.01 - Morbid (severe) obesity due to excess calories Category: Medical Plan: DISCUSSED WITH HER ABOUT. THE WEIGHT ISSUE I THINK SHE SHOULD CONSIDER JOINING A SPECIAL WEIGHT MANAGEMENT PROGRAM. SHE SHOULD ALSO DISCUSS WITH PRIMARY CARE PHYSICIAN ABOUT POSSIBLE USE OF ANTI OBESITY AGENTS. (2) CASSIDY on CPAP: Comment: PATIENT HAS HISTORY OF MODERATELY SEVERE OBSTRUCTIVE SLEEP APNEA, DOIN VERY WELL WITH THE CPAP THERAPY. SHE IS VERY COMPLIANT AND DEFINITELY BENEFITING FROM THE USE OF CPAP. Code(s): G47.33 - Obstructive sleep apnea (adult) (pediatric); Z99.89 - Dependence on other enabling machines and devices Category: Medical Plan: COMMENDED FOR GOOD COMPLIANCE AND ADVISED TO KEEP ON USING CPAP EVERY NIGHT. REQUEST FOR A REPLACEMENT CPAP. DEVICE IS BEING SENT (3) Allergic rhinitis: Comment: PATIENT HAS SYMPTOMS OF NASAL CONGESTION WITH POSTNASAL DRIP OFF SEC TO ALLERGIC RHINITIS. Code(s): J30.9 - Allergic rhinitis, unspecified Category: Medical Plan: OK TO USE CETIRIZINE 10 MG HALF OR 1 TABLET ONCE A DAY P.R.N. Coding Level of Care Code Est Pt Level 3 (75005) Diagnoses Morbid obesity E66.01 CASSIDY on CPAP G47.33; Z99.89 Allergic rhinitis J30.9
--- OUTSIDE RECORDS SUMMARY | 2024-06-09 18:33 | XMS_ITS | Encounter Summary ---
Author Organization [employer] Address [address] [facility] [address] 7[address] [place] [address] Care Team Providers Care Geology Faculty Member Name Role Phone Tali Brody MD Primary Care Provider Mitziva Amy Stanley MD Primary Care Provider [phone] Encounter Details Date Type Department Care Team ([facility] Contact Info) Description 01/30/2022 Telephone [facility] [address] [place] [address] Charu Kumar RN Social History Tobacco Use [...] Department Care Team (Late Contact Info) Description 06/19/2024 9:15 AM EDT Office Visit [facility] [address] [place] [address] Cyrus Tidwell MD [address] [place], [place] [phone] documented as of this encounter Visit Diagnoses Not on filedocumented in this encounter Care Teams Geology Faculty Member Relationship Specialty Start Date End Date Tali Brody MD PCP - General Family Medicine 12/09/18 04/04/22 Amy Rosa MD [address] [place] [address] PCP - General Family Medicine 04/05/22 documented as of this encounter
--- OUTSIDE RECORDS SUMMARY | 2024-06-09 18:33 | XMS_ITS | Clinical Summary ---
Author Organization [employer] Address [address] [place] [address] Care Team Providers Care Log Getter Name Role Phone Amy Rosa MD Primary Care Provider [phone] Allergies Active Allergy Reactions Criticality Noted Date [...] morning. 90 capsule 3 03/28/19 24 Active chlorthalidone (Hygroton) 25 MG tablet TAKE 1 TABLET BY MOUTH EVERY MORNING 90 tablet 3 07/10/19 24 Active levothyroxine (Synthroid, Levoxyl) 88 MCG tablet TAKE 1 TABLET BY MOUTH EVERY MORNING 90 tablet 3 08/12/19 24 Active pantoprazole (ProtoNix) 40 MG EC [...] day. 90 tablet 3 01/02/20 24 Active clotrimazole (Lotrimin) 1 % cream APPLY TOPICALLY TWICE DAILY FOR 28 DAYS 04/22/19 25 Active Petrolatum 42 % ointment APPLY TOPICALLY TO RIGHT FOOT NEEDED FOR DRY SKIN 01/02/20 24 Active zolpidem (Ambien) 5 MG tabletIndications :Primary insomnia TAKE 1 TABLET BY MOUTH AT BEDTIME NEEDED FOR SLEEP 30 tablet 05/21/19 25 Active betamethasone, augmented, (Diprolene) 0.05 % ointmentIndicatio ns:Allergic contact dermatitis, unspecified trigger Apply topically 2 times daily. 45 g 05/23/19 25 Active zolpidem (Ambien) 5 MG tabletIndications :Primary insomnia TAKE 1 TABLET BY MOUTH DAILY AT BEDTIME NEEDED FOR SLEEP 30 tablet 04/22/19 25 025 Discontinued ibuprofen 600 MG tabletIndications :Chronic bilateral low back pain, unspecified whether sciatica present Take 1 tablet (600 mg) by mouth every 8 (eight) hours if needed for mild pain (back pain) for up to 20 days. 60 tablet 05/07/19 25 025 acetaminophen (Tylenol Extra Strength) 500 MG tabletIndications :Chronic bilateral low back pain, unspecified whether sciatica present Take 2 tablets (1,000 mg) by mouth every 8 (eight) hours if needed for mild pain (back pain) for up to 10 days. 30 tablet 05/07/19 25 025 terbinafine (LamISIL) 250 MG tabletIndications :Tinea pedis of right foot Take 1 tablet (250 mg) by mouth Once per day. 30 tablet 05/09/19 25 025 Active Problems Problem Noted Date Diagnosed Date Chronic pain of left ankle 11/13/2023 Symptoms, such as flushing, sleeplessness, headache, lack of concentration, associated with the menopause 04/18/2023 Assessment & Plan (04/18/2023 12:36 PM EST): Lalo luanaearline ordered 03/28/23, our pharmacy is unable to [...] Encounters Date Type Department Care Team Description 05/22/2024 9:30 AM EDT Office Visit [facility] [address] [place] [address] Cyrus Tidwell MD Allergic contact dermatitis, unspecified trigger (Primary Dx) 05/22/2024 Travel 05/20/2024 Refill [facility] [address] [place] [address] Amy Rosa MD Primary insomnia 05/08/2024 9:30 AM EDT Office Visit [address] [address] Cyrus Tidwell MD Tinea pedis of right foot (Primary Dx) 05/08/2024 Travel 05/07/[address] [address] Amy Rosa MD 05/07/[address] [address] Amy Rosa MD telephone call 05/06/2024 3:45 PM EDT Office Visit [address] [address] Amy Rosa MD Chronic bilateral low back pain, unspecified whether sciatica present (Primary Dx); Dietary counseling; Exercise counseling; Class 3 severe obesity with serious comorbidity and body mass index (BMI) of 50.0 to 59.9 in adult, unspecified obesity type ([facility]/HCC) 05/06/2024 Travel 05/04/[address] [address] Amy Rosa MD 05/01/2024 Population Health Risk Score [facility] () Department [address] [place] [phone] Provider, Population Health Generic 04/22/2024 6:20 PM EST Office Visit [facility] [address] [place] [address] Elder Anaya MD Chest wall pain (Primary Dx) 04/22/2024 Travel 04/20/2024 Refill [facility] [address] [place], [place] [phone] Amy Rosa MD Primary insomnia 04/08/[address] [address] Cindy Kidd RN Error (VOID this visit) 04/08/2024 Telephone [facility] [address] [place] [address] Cindy Kidd, FRANCIE 04/08/2024 Telephone [facility] [address] [place] [address] Cindy Kidd, FRANCIE 03/27/2024 Orders Only [facility] [address], [place] [phone] Amy Rosa MD Candidal skin infection (Primary Dx) 03/19/2024 Refill [facility] [address] [place], [place] [phone] Amy Rosa MD Primary insomnia 03/17/2024 Telephone [facility] [address] [place], [place] [phone] Amy Rosa MD [employer] (Underwear, protective Procare XLRG) from Last 3 Months Immunizations Name Administration [...] Years Used Date Smoking Tobacco: Former Cigarettes Passive Smoke Exposure: Past Smokeless Tobacco: Never Tobacco Cessation:Counseling Given: Not [...] Sign Reading Time Taken Comments Blood Pressure 145/68 05/22/2024 9:37 AM EDT Pulse 74 05/22/2024 9:37 AM EDT Temperature 37.1 ??C (98.7 ??F) 05/22/2024 9:37 AM ED T Respiratory Rate 18 05/22/2024 9:37 AM EDT Oxygen Saturation 99% 05/06/2024 3:43 PM EDT Inhaled Oxygen Concentration - - Weight 144 kg (318 lb 6.4 oz) 05/22/2024 9:37 AM EDT Height 157.5 cm (5' 2 ) 05/22/2024 9:37 AM EDT Body Mass Index 58.24 05/22/2024 9:37 AM EDT Plan of Treatment Upcoming Encounters Date Type Department Care Team (Late st Contact Info) Description 06/19/2024 9:15 AM EDT Office Visit [facility] [address] [place] [address] Cyrus Tidwell MD [address] [place] [address] Health Maintenance Due Date Last Done Comments [...] 11/08/2023, 11/08/19 24 SDOH Screening 11/07/2024 11/08/2023 Cervical Cancer Screening 04/04/2025 HPV/Cotest 04/04/2025 04/04/2022, 02/13/2017 Pap Smear 04/04/2025 04/04/2022, 03/21, 02/13/2017 Tobacco Screening 05/08/2025 05/08/2024 Lipid Panel 04/12/2027 04/12/2022, 03/0 04/2021, 11/09/2019 [...] Procedure Name Priority Date/Time Associated Diagnosis Comments LD Routine 04/23/2024 4:06 PM EST Chest wall pain ALDOLASE Routine 04/23/2024 4:06 PM EST Chest wall pain CREATINE KINASE, TOTAL Routine 04/23/2024 4:06 PM EST Chest wall pain COMPREHENSIVE METABOLIC PANEL Routine 04/23/2024 4:06 PM EST Chest wall pain XR CHEST 2 VIEWS Routine 04/23/2024 3:52 PM EST Chest wall pain COMPREHENSIVE METABOLIC PANEL Routine 04/01/2024 9:21 AM EST Tinea pedis of right foot BI MAMMOGRAM SCREENING TOMOSYNTHESIS BILATERAL Routine 06/29/2022 3:11 PM EDT LIPID PANEL, STANDARD Routine 04/12/2022 11:45 AM EST Pure hypercholesterolemia IMAGE-GUIDED PAP W/AGE BASED SCR PROTOCOLS Routine 04/04/2022 12:00 AM EST from Last 3 Months or Most Recently Relevant to Health Maintenance Results * Aldolase (04/23/2024 4:06 PM EST) Aldolase 4.7 <=8.1 U/L [facility] Comment:THIS TEST WAS PERFOR MED AT:[facility] [place] [address]QFRPIEHGONZÁLEZ DAVID MD,PHD Blood Venous blood specimen / Unknown 04/23/2024 4:06 PM EST 04/23/2024 5:42 PM EST Elder Anaya MD LAB BLOOD ORDERABLES Final Resul t Performing Organization Address [facility] de Phone Number [facility] [address] [place] [phone] * (ABNORMAL) Lactate Dehydrogenase (LD) (04/23/2024 4:06 PM EST) Lactate Dehydrogenase 236(H) 122 - 220 U/L [facility] Blood Venous blood specimen / Unknown 04/23/2024 4:06 PM EST 04/23/2024 5:42 PM EST us Elder Anaya MD LAB BLOOD ORDERABLES Final Resul t Performing Organization Address [facility] Phone Number [facility] [address] [place] [phone] * Creatine Kinase, Total (04/23/2024 4:06 PM EST) Creatine Kinase Total 120 26 - 140 U/L [facility] Blood Venous blood specimen / Unknown 04/23/2024 4:06 PM EST 04/23/2024 5:42 PM EST us Elder Anaya MD LAB BLOOD ORDERABLES Final Resul t Performing Organization Address [facility] de Phone Number [facility] [address] [place] [phone] * (ABNORMAL) Comprehensive Metabolic Panel (04/23/2024 4:06 PM EST) Only the most recent of2 resultswithin the time period is included. Sodium 139 135 - 145 mmol/L [facility] Potassium 3.9 3.3 - 5.1 mmol/L [facility] Chloride 104 96 - 108 mmol/L [facility] Carbon Dioxide 27 22 - 29 mmol/L [facility] Anion Gap 12 12 - 20 [facility] Urea Nitrogen (BUN) 11 9 - 16 mg/dL [facility] Creatinine, Serum 0.82 0.5 - 1.4 mg/dL [facility] Estimated Glomerular Filt Rate >60 [facility] Comment:Chronic Kidney Disea se: Estimated GFR < 60 mL/min/[id number] Kidney Disease: Estimated GFR < 15 mL/min/1.73m2 Glucose 97 60 - 115 mg/dL [facility] Calcium 9.3 8.4 - 10.2 mg/dL [facility] Bilirubin, Total 0.7 0.0 - 1.0 mg/dL [facility] Aspartate Amino Transferase 25 5 - 31 U/L [facility] Alanine Aminotransferase 36(H) 0 - 31 U/L [facility] Total Protein 8.2(H) 6.5 - 8.0 g/dL [facility] Albumin Level 4.2 3.5 - 5.0 g/dL [facility] Alkaline Phosphatase 74 39 - 117 U/L [facility] Blood Venous blood specimen / Unknown 04/23/2024 4:06 PM EST 04/23/2024 5:42 PM EST us Elder Anaya MD LAB BLOOD ORDERABLES Final Resul t [facility] [address] [place] [phone] * XR Chest 2 Views (04/23/2024 3:52 PM EST) Anatomical Region Laterality Modality Chest Radiographic Haydee ging 04/23/2024 3:52 PM EST Narrative 04/23/2024 4:49 PM EST ?[facility] ?[address] ?[place] [address] ?XRay Report ? Signed ? Patient: Imer Abreu,Latonia ?MR#: ?? [id number] ? : 1970 ?Acct:[id number] ? Age/Sex: 53 / F ?ADM Date: 04/23/24 ? Loc: HO.HHCX ? Attending Dr: Elder Anaya MD ? Ordering Physician: Elder Anaya MD ?? Date of Service: 04/23/24 ?? Procedure(s): XR chest 2V ?? Accession Number(s): [id number] ? cc: Elder Anaya MD ? EXAMINATION: ?? XR CHEST ? CLINICAL INFORMATION: ?? Patient with 2-week duration of bilateral posterior chest wall pain ? COMPARISON: ?? Chest 05/30/2020 ? TECHNIQUE: ?? 2 views of the chest were obtained. ? FINDINGS: ?? No significant abnormality is noted involving the heart, lungs, ?? mediastinum, bony thorax or soft tissues. ? XR/XR chest 2V ?? IMPRESSION: ?? Unremarkable chest examination. ? Electronically signed by: ??Saul Dotson MD ??04/23/2024 04:46 PM EST RP ? Dictated By: ?Saul Dotson MD ? Signed By: ?<Electronically signed by Saul Dotson MD in OV> ?04/23/24 1646 ? DD/ 1552 ? TD/TT: 04/23/24 1600 ? Automotive Technician: MSM ? Procedure Note Mila Jenkins - 04/23/[address] [address] XRay Report Signed Patient: Tova ParkerIron#: [id number] : 1970Acct:[id number] Age/Sex: 53 / FADM Date: 04/23/24 Loc: HO.HHCX Attending Dr: Elder Anaya MD Ordering Physician: Elder Anaya MD Date of Service: 04/23/24 Procedure(s): XR chest 2V Accession Number(s): [id number] cc: Elder Anaya MD EXAMINATION: XR CHEST CLINICAL INFORMATION: Patient with 2-week duration of bilateral posterior chest wall pain COMPARISON: Chest 05/30/2020 TECHNIQUE: 2 views of the chest were obtained. FINDINGS: No significant abnormality is noted involving the heart, lungs, mediastinum, bony thorax or soft tissues. XR/XR chest 2V IMPRESSION: Unremarkable chest examination. Electronically signed by: Saul Dotson MD 04/23/2024 04:46 PM EST RP Dictated By: Saul Dotson MD Signed By: <Electronically signed by Saul Dotson MD in OV> 04/23/24 1646 DD/ 1552 TD/TT: 04/23/24 1600 Automotive Technician: MERRY us Elder Anaya MD IMG XR PROCEDURES Final Result * BI Mammogram Screening Tomosynthesis Bilateral (06/29/2022 3:11 PM EDT) Anatomical Region Laterality Modality Breast Bilateral Mammography 06/29/2022 3:11 PM EDT Narrative 07/02/2022 12:57 PM EDT ? [facility] [place] ? [address] ?[place] [address] ? Mammography Report ? Signed ? Patient: Imer Abreu,Latonia ?MR#: ?? [id number] ? : 1970 ?Acct:[id number] ? Age/Sex: 51 / F ?ADM Date: 05/12/23 ? Loc: HO.MAMMO ? Attending Dr: Amy Rosa MD ? Ordering Physician: Amy Rosa ?Results: 1Negative ? Date of Service: 06/29/22 ?Follow Up: 1 Year From Orig ?? inal Mammogram ? Procedure(s): MM tomosynthesis screening BI ?? Accession Number(s): [id number] ? cc: Amy Rosa ? EXAMINATION: ?? [...] signed by David Veras MD in OV> ?05/15/23 1255 ? DD/ 1511 ? TD/TT: ? Automotive Technician: MULTANI ? Procedure Note Donotuseinterpreter, Image - 08/16/2022 [facility] [address] [place] [address] Mammography Report Signed Patient: Paul Parker#: [id number] : 1970Acct:[id number] Age/Sex: 51 / FADM Date: 06/29/22 Loc: HO.MAMMO Attending Dr: Amy Rosa MD Ordering Physician: Dayana Rosaults: 1Negative Date of Service: 06/29/22Follow Up: 1 Year From Orig inal Mammogram Procedure(s): MM tomosynthesis screening BI Accession Number(s): [id number] cc: Amy Rosa EXAMINATION: MM SCREENING DIGITAL [...] in OV> 07/02/22 1255 DD/ 1511 TD/TT: Automotive Technician: MULTANI [facility] External Provider IMG BI PROCEDURES Final Result * (ABNORMAL) Lipid Panel, Standard (04/12/2022 11:45 AM EST) Pathologist [facility] Cholesterol, Total 197 <200 mg/dL [facility] [place] [employer] HDL Cholesterol 50 > OR = 50 mg/dL [facility] [place] [employer] Triglycerides 92 <150 mg/dL [facility] [place] [employer] LDL Cholesterol 127(H) mg/dL (calc) [facility] [place] [employer] Comment: Reference range: <100 Desirable range <100 mg/dL for primary prevention; ?? <70 mg/dL for patients with CHD or diabetic patients with > or = 2 CHD risk factors. LDL-C is now calculated using the Carlos calculation, which is a validated novel method providing better accuracy than the Friedewald equation in the estimation of LDL-C. Selvin PRESSLEY et al. ISIDRO. 2013;310(19): 2070-9871 (http://education.[employer]/faq/GRI705) Chol/HDLC Ratio 3.9 <5.0 (calc) [facility] [place] [employer] Non-HDL Cholesterol 147(H) <130 mg/dL (calc) [facility] [place] [employer] Comment: For patients with diabetes plus 1 major ASCVD risk factor, treating to a non-HDL-C goal of <100 mg/dL (LDL-C of <70 mg/dL) is considered a therapeutic option. Blood Venous blood specimen / Unknown 04/12/2022 11:45 AM EST 04/12/2022 11:46 AM EST Narrative [facility] - 04/13/2022 4:14 AM EST FASTING:YES FASTING: YES us Amy Rosa MD LAB BLOOD ORDERABLES Final Res ult [facility] [address] [place] [address] [facility] [place] [employer] [address] [facility], (Nl2) [place] [address] * (ABNORMAL) Image-Guided Pap with Age-Based Screening Protocols (04/04/2022 12:00 AM EST) Pathologist [facility] Comment [facility], [facility] Comment: This order for age-based cervical cancer and STI screening follows ACOG guidelines(PB 168, 140, IFJ691). See individual assays for performing site location. Clinical Information: None given [facility], [facility] LMP: NONE GIVEN [facility], [facility] Prev. PAP: NONE GIVEN [facility], [facility] Prev. BX: NONE GIVEN [facility], [facility] SOURCE: None given [facility], [facility] Statement Of Adequacy: [facility], [facility] Comment: Satisfactory for evaluation. Endocervical/transformation zone component present. General Categorization: EPITHELIAL CELL ABNORMALITY(A) [facility], [facility] Interpretation/ Result: Atypical Squamous Cells of Undetermined Significance (ASC-US)(A) [facility], [facility] COMMENT: This Pap test has been evaluated with computer assisted technology. [facility], [facility] Cytotechnologis t: [facility], [facility] Comment: DMM, CT(ASCP) CT screening location: [address] ??[address] PATHOLOGIST: [facility] Comment: Yuliya Cintron M.D., Ph.D., Board Certified in Anatomic Pathology and Cytopathology (electronic signature) Consulting Pathologist [facility] [address] [place] [phone] (Always Message) [facility], [facility] Comment: EXPLANATORY NOTE: The [...] HPV nRNA E6/E7 Not Detected Not Detected [facility] Comment: Methodology: Automation Controls Engineer-Mediated Amplification This assay detects E6/E7 viral messenger RNA (mRNA) from 14 high-risk HPV types (16,18,31,33,35,39,45,51,52,56,58,59,66,68). Cervical sources are required for HPV testing. If a vaginal source from a patient who has had a total hysterectomy with removal of cervix was submitted, please contact the testing laboratory for alternative testing options. For additional information, please refer to http://education.[employer]faq/ZWI227o1 (This link if provided for information/ educational purposes only.) 04/04/2022 04/05/2022 8:0 6 AM EST Narrative [facility] - 04/11/2022 12:00 PM EST FASTING: UNKNOWN Danitza Harrison [facility] LAB BLOOD ORDERABLES Lidia hansen Result [facility] [address] [place] [address] [facility], [facility]atomic Patholo [address] [place] [phone] [facility] 200 [facility], (Nl2) [place] [address] from Last 3 Months or Most Recently Relevant to Health Maintenance Insurance [facility] C3 Care Teams Log Getter Relationship Specialty Start Date End Date Amy Rosa MD [address] [place] [address] PCP - General Family Medicine 04/05/22
--- OUTSIDE RECORDS SUMMARY | 2024-06-09 18:33 | XMS_ITS | Encounter Summary ---
Author Organization [employer] Address [address] [facility] 7 [place] [address] Care Team Providers Care Manager Of Drilling Name Role Phone Amy Rosa MD Primary Care Provider Encounter Details Date Type Department Care Team (Late Contact Info) Description 07/18/2022 [facility] Information Management [address] [place] [address] Amy Rosa MD [address] [place] [address] Social History Tobacco Use Types Packs/Day Years [...] Description 06/19/2024 9:15 AM EDT Office Visit [facility] [address] [place] [address] Cyrus Tidwell MD [address] [place] [address] documented as of this encounter Visit Diagnoses Not on filedocumented in this encounter Care Teams Manager Of Drilling Relationship Specialty Start Date End Date Amy Rosa MD [address] [place] [address] PCP - General Family Medicine 04/05/22 documented as of this encounter
--- OUTSIDE RECORDS SUMMARY | 2024-06-09 18:33 | XMS_ITS | Encounter Summary ---
Author Organization [employer] Address [address] [place] [address] Care Team Providers Care Square Dance Caller Name Role Phone Amy Rosa MD Primary Care Provider [phone] Encounter Details Date Type Department Care Team (Late st Contact Info) Description 05/16/2022 Abstract [facility] [address] [place] [address] Carmen Wright, RN [address] [place] [address] Social History Tobacco Use Types Packs/Day Years [...] Description 06/19/2024 9:15 AM EDT Office Visit [facility] [address] [place] [address] Cyrus Tidwell MD [address] [place] [address] documented as of this encounter Visit Diagnoses Not on filedocumented in this encounter Care Teams Square Dance Caller Relationship Specialty Start Date End Date Amy Rosa MD [address] [place] [address] PCP - General Family Medicine 04/05/22 documented as of this encounter
--- OUTSIDE RECORDS SUMMARY | 2024-06-09 18:33 | XMS_ITS | Encounter Summary ---
Author Organization [employer] Address [address] [place] [address] Care Team Providers Care Pony Roll Finisher Name Role Phone Amy Rosa MD Primary Care Provider [phone] Encounter Details Date Type Department Care Team (Late st Contact Info) Description 06/08/2022 Abstract [facility] [address] [place] [phone] Amy Rosa MD [address] [place] [phone] Social History Tobacco Use Types Packs/Day Years [...] Description 06/19/2024 9:15 AM EDT Office Visit [facility] [address] [place] [address] Cyrus Tidwell MD [address] [place] [address] documented as of this encounter Visit Diagnoses Not on filedocumented in this encounter Care Teams Pony Roll Finisher Relationship Specialty Start Date End Date Amy Rosa MD [address] [place] [address] PCP - General Family Medicine 04/05/22 documented as of this encounter
--- OUTSIDE RECORDS SUMMARY | 2024-06-09 18:33 | XMS_ITS | Encounter Summary ---
Author Organization [employer] Address [address] 7[address] [place] [address] Care Team Providers Care Survey Rodman Name Role Phone Amy Rosa MD Primary Care Provider [phone] Encounter Details Date Type Department Care Team ([facility] st Contact Info) Description 12/19/2023 Orders Only [facility] [address] [place] [address] Amy Rosa MD [address] [place] [address] Cellulitis and abscess of foot (Primary Dx) [...] your housing situation today? I have katie karen 11/08/[address] you li [...] Description 06/19/2024 9:15 AM EDT Office Visit [facility] [address] [place] [address] Cyrus Tidwell MD [address] [place] [address] documented as of this encounter Visit Diagnoses Diagnosis Cellulitis and abscess of foot- Primary Cellulitis and abscess of foot, except toes documented in this encounter Additional Health Concerns Assessment Noted Time PHQ-9 Depression Total Score: 0 11/08/19 24 2:44 PM EDT documented as of this encounter Care Teams Survey Rodman Relationship Specialty Start Date End Date Amy Rosa MD [address] [place] [address] PCP - General Family Medicine 04/05/22 documented as of this encounter
--- OUTSIDE RECORDS SUMMARY | 2024-06-09 18:33 | XMS_ITS | Encounter Summary ---
Author Organization [employer] Address [address] [facility] 7t [place] [address] Care Team Providers Care Form Tamper Name Role Phone Amy Rosa MD Primary Care Provider [phone] Reason for Referral * Consultation (Routine) - Authorized Specialty Diagnoses / Procedures Referred By Contac t Referred To Contact Dermatology Diagnoses Candidal skin infection Amy Rosa MD [address] [place] [address] Phone: tel: fax: Referral ID Status Reason Start Date Expiration Date Visits Requested Visits Authorized [id number] Authorized Specialty Services Required 03/30/2024 03/30/2025 1 1 Encounter Details Date Type Department Care Team ([facility] st Contact Info) Description 03/27/2024 Orders Only [facility] MEDICINE [address] [place] [address] [phone] Amy Rosa MD [address] [place], [place] [phone] Candidal skin infection (Primary Dx) Social History [...] Description 06/19/2024 9:15 AM EDT Office Visit [facility] MEDICINE [address] [place] [address] Cyrus Tidwell MD [address] [place] [address] Scheduled Referrals Name Type Priority Associated Diagnoses Orde r Schedule Referral to [facility] Derm Skin Adult Outpatient Referral Routine Candidal skin infection Expected: 03/30/2024 (Approximate), Expires: 03/30/2025 documented as of this encounter Visit Diagnoses Diagnosis Candidal skin infection- Primary documented in this encounter Additional Health Concerns Assessment Noted Time PHQ-9 Depression Total Score: 0 09/20/20 24 2:44 PM EDT documented as of this encounter Care Teams Form Tamper Relationship Specialty Start Date End Date Amy Rosa MD [address] [place] [address] PCP - General Family Medicine 04/05/22 documented as of this encounter
--- OUTSIDE RECORDS SUMMARY | 2024-06-09 18:33 | XMS_ITS | Encounter Summary ---
Author Organization [employer] Address [address] [facility] [address] 7t [place] [address] Care Team Providers Care Life Science Teacher Name Role Phone Amy Rosa MD Primary Care Provider Reason for Visit * Reason Onset Date Comments Med Refill 08/20/2023 Encounter Details Date Type Department Care Team (Late st Contact Info) Description 08/20/2023 Refill [facility] [address] [place] [address] Amy Rosa MD [address] [place], [place] [phone] Stress incontinence; Primary insomnia Social History Tobacco [...] 06/19/2024 9:15 AM EDT Office Visit [facility] [address] [place] [address] Cyrus Tidwell MD [address] [place] [address] documented as of this encounter Visit Diagnoses Diagnosis Stress incontinence Female stress incontinence Primary insomnia Persistent disorder of initiating or maintaining sleep documented in this encounter Care Teams Life Science Teacher Relationship Specialty Start Date End Date Amy Rosa MD [address] [place], [place] [phone] PCP - General Family Medicine 04/05/22 documented as of this encounter
--- OUTSIDE RECORDS SUMMARY | 2024-06-09 18:33 | XMS_ITS | Encounter Summary ---
Author Organization [employer] Address [address] [facility] [address] 7t [place] [address] Care Team Providers Care Fire Engine Operator Name Role Phone Amy Rosa MD Primary Care Provider [phone] Reason for Visit * Reason Onset Date Comments Med Refill 06/13/2023 Encounter Details Date Type Department Care Team (Late st Contact Info) Description 06/13/2023 Refill [facility] MEDICINE [address] [place] [address] Name, MD Henry [address] [place] [address] Primary insomnia Social History Tobacco Use Types [...] Description 06/19/2024 9:15 AM EDT Office Visit [facility] MEDICINE [address] [place] [address] Cyrus Tidwell MD [address] [place] [address] documented as of this encounter Visit Diagnoses Diagnosis Primary insomnia Persistent disorder of initiating or maintaining sleep documented in this encounter Care Teams Fire Engine Operator Relationship Specialty Start Date End Date Amy Rosa MD [address] [place] [address] PCP - General Family Medicine 04/05/22 documented as of this encounter
--- OUTSIDE RECORDS SUMMARY | 2024-06-09 18:33 | XMS_ITS | Encounter Summary ---
Author Organization [employer] Address [address] [facility] 7 [place] [address] Care Team Providers Care Siding Applicator Name Role Phone Amy Rosa MD Primary Care Provider [phone] Encounter Details Date Type Department Care Team (Late Contact Info) Description 07/18/2022 [facility] Information Management [address] [place] [address] Amy Rosa MD [address] [place] [address] Social History Tobacco Use Types Packs/Day Years [...] Description 06/19/2024 9:15 AM EDT Office Visit [facility] MEDICINE [address] [place] [address] Cyrus Tidwell MD [address] [place] [address] documented as of this encounter Visit Diagnoses Not on filedocumented in this encounter Care Teams Siding Applicator Relationship Specialty Start Date End Date Amy Rosa MD [address] [place] [address] PCP - General Family Medicine 04/05/22 documented as of this encounter
--- OUTSIDE RECORDS SUMMARY | 2024-06-09 18:33 | XMS_ITS | Encounter Summary ---
Author Organization [employer] Address [address] [facility] [address] 7t [place] [address] Care Team Providers Care Pet Crematory Worker Name Role Phone Amy Rosa MD Primary Care Provider [phone] Reason for Visit * Reason Onset Date Comments Med Refill 02/13/2024 Encounter Details Date Type Department Care Team (Late st Contact Info) Description 02/13/2024 Refill [facility]INE [address] [place] [address] Amy Rosa MD [address] [place] [address] Essential hypertension Social History Tobacco Use Types [...] Description 06/19/2024 9:15 AM EDT Office Visit [facility] MEDICINE [address] [place] [address] Cyrus Tidwell MD [address] [place] [address] documented as of this encounter Visit Diagnoses Diagnosis Essential hypertension Unspecified essential hypertension documented in this encounter Additional Health Concerns Assessment Noted Time PHQ-9 Depression Total Score: 0 11/08/19 24 2:44 PM EDT documented as of this encounter Care Teams Pet Crematory Worker Relationship Specialty Start Date End Date Amy Rosa MD [address] [place] [address] PCP - General Family Medicine 04/05/22 documented as of this encounter
--- OUTSIDE RECORDS SUMMARY | 2024-06-09 18:33 | XMS_ITS | Encounter Summary ---
Author Organization [employer] Address [address] [facility] [address] 7t [place] [address] Care Team Providers Care Sluice Tender Name Role Phone Amy Rosa MD Primary Care Provider [phone] Encounter Details Date Type Department Care Team (Late Contact Info) Description 04/11/2022 Orders Only [facility] MED[facility]INE [address] [place] [address] Danitza Harrison CN [address] [place] [address] Social History Tobacco Use Types Packs/Day Years [...] Description 06/19/2024 9:15 AM EDT Office Visit [facility] [address] [place] [address] Cyrus Tidwell MD [address] [place] [address] documented as of this encounter Procedures Procedure Name Priority Date/Time Associated Diagnosis Comments PAP SMEAR Routine 04/02/2022 12:00 AM EST documented in this encounter Results * Pap Smear (04/02/2022 12:00 AM EST) Swab us Danitza Harrison [facility] CYTOLOGY ORDERABLES F inal Result [address], [place] [address] documented in this encounter Visit Diagnoses Not on filedocumented in this encounter Care Teams Sluice Tender Relationship Specialty Start Date End Date Amy Rosa MD [address] [place] [address] PCP - General Family Medicine 04/05/22 documented as of this encounter
--- OUTSIDE RECORDS SUMMARY | 2024-06-09 18:33 | XMS_ITS | Encounter Summary ---
Author Organization [employer] Address [address] [facility] [address] 7t [place] [address] Care Team Providers Care Bumper Operator Name Role Phone Amy Rosa MD Primary Care Provider [phone] Reason for Visit * Reason Onset Date Comments Med Refill 09/13/2023 Encounter Details Date Type Department Care Team (Late st Contact Info) Description 09/13/2023 Refill [facility] [address] [place] [address] Amy Rosa MD [address] [place], [place] [phone] Vitamin D deficiency Social History Tobacco Use [...] 9:15 AM EDT Office Visit [facility] MEDICINE [address] [place] [address] Cyrus Tidwell MD [address] [place] [address] documented as of this encounter Visit Diagnoses Diagnosis Vitamin D deficiency documented in this encounter Care Teams Bumper Operator Relationship Specialty Start Date End Date Amy Rosa MD [address] [place] [address] PCP - General Family Medicine 04/05/22 documented as of this encounter
--- OUTSIDE RECORDS SUMMARY | 2024-06-09 18:33 | XMS_ITS | Encounter Summary ---
Author Organization [employer] Address [address] [facility] [address] 7[address] [place] [address] Care Team Providers Care Fingerprint Technician Name Role Phone Amy Rosa MD Primary Care Provider [phone] Encounter Details Date Type Department Care Team ([facility] st Contact Info) Description 03/28/2023 Orders Only [facility] MEDICINE [address] [place] [address] Amy Rosa MD [address] [place] [address] Social History Tobacco Use Types Packs/Day Years [...] Description 06/19/2024 9:15 AM EDT Office Visit [facility] [address] [place] [address] Cyrus Tidwell MD [address] [place] [address] documented as of this encounter Procedures Procedure Name Priority Date/Time Associated Diagnosis Comments GRAM STAIN Routine 12/18/2023 2:00 PM EDT documented in this encounter Results * Gram stain (12/18/2023 2:00 PM EDT) 12/18/2023 2:00 PM EDT 12/18/2023 6:11 PM EDT Comment:Foot Rt Narrative [facility] - 12/21/2023 7:42 AM EDT [...] aeruginosa: Piperacillin/Tazobactam <=4(S) Specimen Source: Foot Right [facility] MICROBIOLOGY - GENERAL OR DERABLES Final Result Performing Organization Address City/State/[facility] Co de Phone Number [facility] [address] [place] [phone] documented in this encounter Visit Diagnoses Not on filedocumented in this encounter Care Teams Fingerprint Technician Relationship Specialty Start Date End Date Amy Rosa MD [address] [place] [address] PCP - General Family Medicine 04/05/22 documented as of this encounter
== END 2024-06-09 16:13 | disposition home or self-care (01) ==
LOC: HO.HPS 15:46
PROVIDERS: PCP General Practice; Visit Provider Internal Medicine
DX: E66.01 Morbid (severe) obesity due to excess calories (principal); G47.33 Obstructive sleep apnea (adult) (pediatric); Z99.89 Dependence on other enabling machines and devices; J30.9 Allergic rhinitis, unspecified
CPT/HCPCS: 99213

== ENCOUNTER → 2024-06-09 15:46 | Outpatient (BNVA) | payer MEDICAID, SELFPAY | PROVIDERS: PCP General Practice; Visit Provider Internal Medicine | DX: E66.09 Other obesity due to excess calories (principal); G47.33 Obstructive sleep apnea (adult) (pediatric); J30.9 Allergic rhinitis, unspecified; Z68.43 Body mass index [BMI] 50.0-59.9, adult; Z99.89 Dependence on other enabling machines and devices | CPT/HCPCS: 99212 ==

== ENCOUNTER 2024-09-28 15:18 | Outpatient (AMB) | payer MEDICAID, SELFPAY ==
--- NOTE | 2024-09-28 15:24 | A.OFFVIS_ITS ---
Vital Signs 09/28/24 15:25 Height 5 ft 2 in Weight 298 lb 11.622 oz BMI 54.6 BP 130/80 Blood Pressure Location Lt brachial Position Sitting Pulse 81 Pulse Source Pulse Oximeter Pulse Oximetry (%) 98 Oxygen Delivery Method Room Air Intake Visit Reasons: Obstructive sleep apnea Intake Note: pt is here for follow up and states she received a new cpap and is doing well, send note to reliable Hide Inspector Required: No Allergies sulfamethoxazole (From Bactrim) Adverse Reaction (Verified 09/28/24 15:37) rash trimethoprim (From Bactrim) Adverse Reaction (Verified 09/28/24 15:37) rash Medication List - Last Reconciled 09/28/24 by Breonna Canseco MD atorvastatin 40 mg PO DAILY cetirizine 10 mg PO DAILY PRN chlorthalidone 25 mg PO QAM PRN cholecalciferol (vitamin D3) 25 mcg PO DAILY fluticasone propionate 50 mcg/actuation 2 sprays intranasal QAM levothyroxine 88 mcg PO DAILY lidocaine 5% patches topical meloxicam 15 mg PO DAILY pantoprazole 40 mg PO DAILY zolpidem 5 mg PO BEDTIME Do you need a note to return to daycare/school/sports/work: No HPI HPI Obstructive sleep apnea: Details: This 53 years old very pleasant female is here for follow-up. She is using the CPAP very regularly every night and sleeps good. She is very happy with her new CPAP machine. She is excited about the fact that she has lost 21 lb in the last 4 months, with her own efforts. She has started walking more every day, and she is restricting the dietary intake, using more her the ingredients. She is feeling more energetic. Denies any dyspnea on exertion cough or wheezing. FORMERLY [facility], 1928[facility]1983 Medical History Allergic rhinitis CASSIDY on CPAP Morbid obesity Anxiety PLMD (periodic limb movement disorder) Dry eyes CASSIDY (obstructive sleep apnea) GERD (gastroesophageal reflux disease) Menorrhagia with regular cycle Iron deficiency Class 3 severe obesity due to excess calories in adult Chronic midline low back pain Anosmia Depression Stress incontinence Hypothyroid Eczema Right knee meniscal tear Pure hypercholesterolemia Family History Mother Diabetes Father Cancer Son Diabetes Social History Patient Tobacco Use Status: Former Tobacco user Review of Systems Const All systems reviewed & are unremarkable except as noted in HPI and below Eyes Reports no additional complaints ENT Reports nasal congestion (OFF AND ON) and Reports nasal discharge Card Reports no additional complaints Resp Reports no additional complaints GI Reports constipation and Reports heartburn (GERD SYMPTOMS CONTROLLED WITH MED) Reports no additional complaints Musc Reports no additional complaints Skin/Breast Reports system reviewed and no additional complaints, except as documented Neuro Reports no additional complaints and Reports restless legs (HAS IMPROVED AND SHE IS OF IRON SUPPLEMENTS) Psych Reports no additional complaints Endo Reports other (HYPOTHYROIDISM BEING TREATED WITH MED) Physical Exam Const Other: OBESE BUT VERY HEALTHY LOOKING. General: comfortable, no acute distress, alert and awake Orientation/consciousness: patient oriented x3 HEENT Head: Yes normal to inspection General nose exam: No nasal polyps present and No nasal discharge present Face and sinus: Yes sinuses nontender Mouth: oropharynx normal Throat: Yes posterior oropharynx normal Eyes General: appearance normal, both eyes and all related structures Neck Neck: Yes normal visual inspection, Yes no lymphadenopathy, Yes trachea midline and Yes no JVD Thyroid: Thyroid normal Chest Chest palpation & inspection: normal inspection of the chest, normal palpation of entire chest wall and no tenderness Resp Effort & Inspection: normal respiratory effort Auscultation: clear to auscultation bilaterally, no crackles and no wheezes Cardio Palpation: normal PMI Rate: regular rate Rhythm: regular rhythm Heart sounds: no gallops and no murmurs Peripheral pulses: Peripheral pulses 2+ throughout GI Palpation (GI): Soft to palpation, nontender, No hepatosplenomegaly present, no masses and Other GI palpation findings present (ABDOMEN IS OBESE AND SOMEWHAT PROTUBERANT) Auscultation: normal bowel sounds Back/Spine/Pelvis Thoracic/Lumbar Spine: thoracic and lumbar spine normal to inspection and thoraco-lumbar ROM limited Skin General skin exam: no rashes or lesions noted Neuro General: patient oriented x3 and no focal motor deficits Cranial nerves: Yes CN's II-XII intact bilaterally Extrem General: Yes normal to inspection, Yes no calf tenderness and Yes edema (TRACE OF PITTING EDEMA OF BOTH LEGS) Psych Appearance: grossly normal and well kempt Speech and movement: Normal speech and movement present Results Reviewed Results Reviewed: Compliance report for the last 30 nights is reviewed She has used 100% of the nights with average use it per night 6 hours 37 minutes. There is a mild air leak, maximum 77.4. Residual AHI only 2.1 Assessment & Plan Assessment & Plan (1) Morbid obesity: Comment: SHE REMAINS MORBIDLY OBESE, BUT HAS LOST SIGNIFICANT WEIGHT ( 21 LBS ) IN THE LAST 4 MONTHS. Code(s): E66.01 - Morbid (severe) obesity due to excess calories Category: Medical Plan: COMMENDED FOR, WEIGHT LOSS, BY HER OWN WILL POWER AND SENSIBLE EATING. (2) Allergic rhinitis: Comment: PATIENT HAS SYMPTOMS OF NASAL CONGESTION WITH POSTNASAL DRIP OFF SEC TO ALLERGIC RHINITIS. Code(s): J30.9 - Allergic rhinitis, unspecified Category: Medical Plan: ADVISED THAT SHE MAY USE FLONASE 1 OR 2 SPRAY IN EACH NOSTRIL AT NIGHTTIME, PRN (3) CASSIDY on CPAP: Comment: PATIENT HAS HISTORY OF MODERATELY SEVERE OBSTRUCTIVE SLEEP APNEA, DOIN VERY WELL WITH THE CPAP THERAPY. SHE HAS A REPLACEMENT UNIT AND IS VERY HAPPY WITH IT. SHE IS VERY COMPLIANT AND DEFINITELY BENEFITING FROM THE USE OF CPAP. Code(s): G47.33 - Obstructive sleep apnea (adult) (pediatric); Z99.89 - Dependence on other enabling machines and devices Category: Medical Plan: COMMENDED FOR GOOD COMPLIANCE AND ADVISED TO KEEP ON USING IT EVERY NIGHT. INSTRUCTED TO TIGHTEN THE STRAPS LITTLE BIT MORE AT NIGHTTIME Coding Level of Care Code Est Pt Level 3 (92103) Diagnoses Morbid obesity E66.01 Allergic rhinitis J30.9 CASSIDY on CPAP G47.33; Z99.89
[2024-09-28 15:25] VITALS: BP 130/80; PULSE 81; O2SAT 98; BMI 54.6
--- OUTSIDE RECORDS SUMMARY | 2024-09-28 15:33 | XMS_ITS | Encounter Summary ---
Author Organization [employer] Address [address] [facility] [address] 7t [place] [address] Care Team Providers Care Plastic Molding Operator Name Role Phone Amy Rosa MD Primary Care Provider [phone] Reason for Visit * Reason Onset Date Comments Med Refill 06/13/2023 Encounter Details Date Type Department Care Team ([facility] st Contact Info) Description 06/13/2023 Refill [facility] MEDICINE [address] [place] [address] Name, MD Henry [address] [place] [address] Primary insomnia Social History Tobacco Use Types [...] as of this encounter Plan of Treatment Not on file documented as of this encounter Visit Diagnoses Diagnosis Primary insomnia Persistent disorder of initiating or maintaining sleep documented in this encounter Care Teams Plastic Molding Operator Relationship Specialty Start Date End Date Amy Rosa MD [address] [place] [address] PCP - General Family Medicine 04/05/22 documented as of this encounter
== END 2024-09-28 15:35 | disposition home or self-care (01) ==
LOC: HO.HPS 15:18
PROVIDERS: PCP General Practice; Visit Provider Internal Medicine
DX: E66.01 Morbid (severe) obesity due to excess calories (principal); J30.9 Allergic rhinitis, unspecified; G47.33 Obstructive sleep apnea (adult) (pediatric); Z99.89 Dependence on other enabling machines and devices
CPT/HCPCS: 99213

== ENCOUNTER → 2024-09-28 15:18 | Outpatient (BNVA) | payer MEDICAID, SELFPAY | PROVIDERS: PCP General Practice; Visit Provider Internal Medicine | DX: G47.33 Obstructive sleep apnea (adult) (pediatric) (principal); Z99.89 Dependence on other enabling machines and devices; E66.01 Morbid (severe) obesity due to excess calories; J30.9 Allergic rhinitis, unspecified | CPT/HCPCS: 99212 ==

== ENCOUNTER → 2024-11-09 15:00 | Outpatient (BNV) | payer MEDICAID, SELFPAY | PROVIDERS: PCP General Practice; Visit Provider Radiology Body Imaging | DX: Z12.31 Encounter for screening mammogram for malignant neoplasm of breast (principal) | CPT/HCPCS: 77063; 77067 ==

== ENCOUNTER 2024-11-09 15:06 | Outpatient (REF) | payer MEDICAID, SELFPAY ==
--- NOTE | ~2024-11-09 | MM_ITS ---
EXAMINATION: MM SCREENING DIGITAL BREAST TOMOSYNTHESIS, BILATERAL CLINICAL INFORMATION: Screening. Asymptomatic. COMPARISON: Comparison made to multiple prior, most recent June 29, 2022, and most remote May 21, 2017. TECHNIQUE: Digital breast tomosynthesis is performed in mediolateral oblique and craniocaudal views along with computer-aided detection (CAD). Synthesized 2D images are generated from the tomosynthesis. FINDINGS: BREAST COMPOSITION: There are scattered areas of fibroglandular density. BILATERAL BREASTS: No significant masses, suspicious calcifications or other abnormalities are seen in either breast. MM/MM tomosynthesis screening BI IMPRESSION: BILATERAL BREASTS: Negative, no mammographic evidence of malignancy. Normal interval follow-up is recommended in 12 months. ASSESSMENT: BI-RADS: Category 1: Negative RECOMMENDATION: Routine annual mammography screening. FOLLOW-UP: 1 year F/U This examination should not preclude the clinical evaluation of a suspicious palpable abnormality. This patient's information was entered into a reminder system with a target due date for their next mammogram. Electronically signed by: Chaparrita Márquez MD 11/10/2024 07:42 PM EDT
--- OUTSIDE RECORDS SUMMARY | 2024-11-09 17:34 | XMS_ITS | Encounter Summary ---
Demographics Address [address] [place] [phone] Work Phone Mobile Phone
== END 2024-11-09 15:07 | disposition home or self-care (01) ==
LOC: HO.MAMMO 15:06
PROVIDERS: PCP General Practice; Visit Provider General Practice
DX: Z12.31 Encounter for screening mammogram for malignant neoplasm of breast (principal)
CPT/HCPCS: 77063; 77067

== ENCOUNTER 2024-11-23 09:27 | Outpatient (REF) | payer MEDICAID, SELFPAY ==
--- OUTSIDE RECORDS SUMMARY | 2024-11-20 11:00 | XMS_ITS | Encounter Summary ---
Author Organization [employer] Address [address] [facility] 7 [place] [address] Care Team Providers Care Lcsw Name Role Phone Amy Rosa MD Primary Care Provider [phone] Reason for Visit * Consultation (Routine) - Authorized Specialty Diagnoses / Procedures Referred By Contac t Referred To Contact Pharmacy Diagnoses Allergic contact dermatitis, unspecified trigger Hyperlipidemia, unspecified hyperlipidemia type Intramural and submucous leiomyoma of uterus Amy Rosa MD [address] [place] [address] Phone: tel: fax: Referral ID Status Reason Start Date Expiration Date Visits Requested Visits Authorized [id number] Authorized Continuity of Care 09/22/2024 09/22/2025 6 6 Encounter Details Date Type Department Care Team (Latest Contact Info) Description 11/20/2024 11:00 AM EDT Telemedicine [facility] MEDICINE [address] [place] [address] Allison Garcia, PharmD [address] [place], [place] [phone] Hyperlipidemia, unspecified hyperlipidemia type (Primary Dx); Acquired hypothyroidism Social History Tobacco Use Types Packs/Day Years Used Date Smoking Tobacco: Former Cigarettes Passive Smoke Exposure: Past Smokeless Tobacco: Never Alcohol Use Standard Drinks/Week Comments Never 0 (1 standard drink = 0.6 oz pur e alcohol) Depression Answer Date Recorded Patient Health Questionnaire-9 Score 0 11/08/2023 Patient Health Questionnaire-9 Score 0 11/08/2023 Last PHQ-9: Questionnaire Data Not on file 0 11/08/2023 Housing Stability Answer Date Recorded What is your housing situation today? I have katie jones 09/10/[address] you li ve. Do you have problems with any of the following? Pests such as bugs, ants, or mice;Mold 09/10/2024 Food Insecurity Answer Date Recorded Within the [...] Upcoming Encounters Date Type Department Care Team ([facility] st Contact Info) Description 11/24/2024 3:00 PM EDT Immunization [facility] [address] [place] [address] Scheduled Orders Name Type Priority Associated Diagnoses Orde r Schedule Lipid Panel, Standard Lab Routine Hyperlipidemia, unspecified hyperlipidemia type Expected: 11/20/2024 (Approximate), Expires: 11/20/2025 TSH W/Reflex to FT4 Lab Routine Acquired hypothyroidism Expected: 11/20/2024 (Approximate), Expires: 11/20/2025 documented as of this encounter Visit Diagnoses Diagnosis Hyperlipidemia, unspecified hyperlipidemia type- Primary Acquired hypothyroidism Unspecified hypothyroidism documented in this encounter Additional Health Concerns Assessment Noted Time PHQ-9 Depression Total Score: 0 11/08/19 24 2:44 PM EDT documented as of this encounter Care Teams Lcsw Relationship Specialty Start Date End Date Amy Rosa MD [address] [place] [address] PCP - General Family Medicine 04/05/22 documented as of this encounter
--- OUTSIDE RECORDS SUMMARY | 2024-11-23 10:42 | XMS_ITS | Encounter Summary ---
Author Organization [employer] Address [address] [facility] 7t [place] [address] Care Team Providers Care Prison Psychiatrist Name Role Phone Amy Rosa MD Primary Care Provider [phone] Reason for Visit * Reason Onset Date Comments Med Refill 11/03/2024 Encounter Details Date Type Department Care Team (Late st Contact Info) Description 11/03/2024 Refill [facility] MEDICINE [address] [place] [address] Amy Rosa MD [address] [place] [address] Primary insomnia Social History Tobacco Use Types [...] housing situation today? I have katie sing 09/10/[address] you li [...] Care Team (Late st Contact Info) Description 11/24/2024 3:00 PM EDT Immunization [facility] MEDICINE [address] [place] [address] documented as of this encounter Visit Diagnoses Diagnosis Primary insomnia Persistent disorder of initiating or maintaining sleep documented in this encounter Additional Health Concerns Assessment Noted Time PHQ-9 Depression Total Score: 0 11/08/19 24 2:44 PM EDT documented as of this encounter Care Teams Prison Psychiatrist Relationship Specialty Start Date End Date Amy Rosa MD [address] [place] [address] PCP - General Family Medicine 04/05/22 documented as of this encounter
--- OUTSIDE RECORDS SUMMARY | 2024-11-23 10:42 | XMS_ITS | Encounter Summary ---
Author Organization [employer] Address [address] 7[address] [place] [address] Care Team Providers Care Nursery Teacher Name Role Phone Amy Rosa MD Primary Care Provider [phone] Encounter Details Date Type Department Care Team ([facility] Contact Info) Description 07/06/2024 Orders Only [facility] [address] [place] [address] Amy Rosa MD [address] [place] [address] Social History Tobacco Use Types Packs/Day Years [...] Info) Description 11/24/2024 3:00 PM EDT Immunization [facility] [address] [place] [address] documented as of this encounter Procedures Procedure Name Priority Date/Time Associated Diagnosis Comments FIT DNA/COLOGUARD CANCER SCREENING Routine 04/27/2022 documented in this encounter Results * FIT DNA/Cologuard Cancer Screening (04/27/2022) Cologuard Cancer Screen Negative Stool Amy Rosa MD HEALTH MAINTENANCE Final Resul t documented in this encounter Visit Diagnoses Not on filedocumented in this encounter Additional Health Concerns Assessment Noted Time PHQ-9 Depression Total Score: 0 11/08/19 24 2:44 PM EDT documented as of this encounter Care Teams Nursery Teacher Relationship Specialty Start Date End Date Amy Rosa MD [address] [place] [address] PCP - General Family Medicine 04/05/22 documented as of this encounter
--- OUTSIDE RECORDS SUMMARY | 2024-11-23 10:42 | XMS_ITS | Encounter Summary ---
Author Organization [employer] Address [address] [facility] 7 [place] [address] Care Team Providers Care Validation Architect Name Role Phone Amy Rosa MD Primary Care Provider [phone] Encounter Details Date Type Department Care Team (Late Contact Info) Description 07/18/2022 [facility] Information Management [address] [place] [address] Amy Rosa MD [address] [place] [address] Social History Tobacco Use Types Packs/Day Years [...] Upcoming Encounters Date Type Department Care Team ([facility] Contact Info) Description 11/24/2024 3:00 PM EDT Immunization [facility] [address] [place] [address] documented as of this encounter Visit Diagnoses Not on filedocumented in this encounter Care Teams Validation Architect Relationship Specialty Start Date End Date Amy Rosa MD [address] [place] [address] PCP - General Family Medicine 04/05/22 documented as of this encounter
--- OUTSIDE RECORDS SUMMARY | 2024-11-23 10:42 | XMS_ITS | Encounter Summary ---
Author Organization [employer] Address [address] 7[address] [place] [address] Care Team Providers Care Research Consultant Name Role Phone Amy Rosa MD Primary Care Provider [phone] Reason for Visit * Reason Onset Date Comments Med Refill 02/13/2024 Encounter Details Date Type Department Care Team (Late st Contact Info) Description 02/13/2024 Refill [facility] MEDICINE [address] [place] [address] Amy Rosa MD [address] [place] [address] Essential hypertension Social History Tobacco Use Types [...] Info) Description 11/24/2024 3:00 PM EDT Immunization [facility] MEDICINE [address] [place] [address] documented as of this encounter Visit Diagnoses Diagnosis Essential hypertension Unspecified essential hypertension documented in this encounter Additional Health Concerns Assessment Noted Time PHQ-9 Depression Total Score: 0 11/08/19 24 2:44 PM EDT documented as of this encounter Care Teams Research Consultant Relationship Specialty Start Date End Date Amy Rosa MD [address] [place] [address] PCP - General Family Medicine 04/05/22 documented as of this encounter
--- OUTSIDE RECORDS SUMMARY | 2024-11-23 10:42 | XMS_ITS | Clinical Summary ---
Author Organization [employer] Address [address] 7t [place] [address] Care Team Providers Care Rating Clerk Name Role Phone Amy Rosa MD [...] DIRECTED 30 patch 3 01/17/20 23 Active cholecalciferol (Vitamin D High Potency) 25 MCG (1000 UT) capsuleIndicatio ns:Vitamin D deficiency TAKE 1 CAPSULE BY MOUTH EVERY MORNING 90 capsule 3 12/18/19 24 Active lisinopril 2.5 MG tabletIndication s:Essential hypertension Take 1 tablet (2.5 mg) by mouth Once per day. 90 tablet 3 01/02/20 24 025 Active fluticasone (Flonase) 50 MCG/ACT nasal sprayIndications :Chronic maxillary sinusitis USE 2 SPRAYS IN EACH NOSTRIL EVERY MORNING 48 g 3 01/02/20 24 Active cetirizine (ZyrTEC) 10 MG tabletIndication s:Chronic maxillary sinusitis Take 1 tablet (10 mg) by mouth Once per day. 90 tablet 3 01/02/20 24 Active Black Cohosh 40 MG capsule Take 1 capsule by mouth Once per day. 90 capsule 3 07/21/19 25 Active levothyroxine (Synthroid, Levoxyl) 88 MCG tablet Take 1 tablet (88 mcg) by mouth in the morning. 90 tablet 3 07/21/19 25 Active betamethasone, augmented, (Diprolene) 0.05 % ointmentIndicati ons:Allergic contact dermatitis, unspecified trigger Apply topically 2 times daily. 45 g 09/22/19 25 Active chlorthalidone (Hygroton) 25 MG tablet TAKE 1 TABLET BY MOUTH EVERY MORNING 90 tablet 3 09/22/19 25 Active pantoprazole (ProtoNix) 40 MG EC tablet TAKE 1 TABLET BY MOUTH EVERY MORNING 90 tablet 1 10/01/19 25 Active Multiple Vitamin (multivitamin) tablet Take as directed; patient purchasing OTC Active zolpidem (Ambien) 5 MG tabletIndication s:Primary insomnia TAKE 1 TABLET BY MOUTH AT BEDTIME NEEDED FOR SLEEP 30 tablet 10/29/19 25 Active meloxicam (Mobic) 15 MG tabletIndication s:Chronic bilateral low back pain, unspecified whether sciatica present Take 1 tablet (15 mg) by mouth at bedtime. 30 tablet 11 10/29/19 25 026 Active atorvastatin (Lipitor) 40 MG tablet Take 1 tablet by mouth Once per day. 09/22/19 25 Active zolpidem (Ambien) 5 MG tabletIndication s:Primary insomnia TAKE 1 TABLET BY MOUTH AT BEDTIME NEEDED FOR SLEEP 30 tablet 10/01/19 25 025 Discontinued Active Problems Problem Noted Date Diagnosed Date Intramural and submucous leiomyoma of uterus 06/2024 Chronic pain of left ankle 11/13/2023 Symptoms, such as flushing, sleeplessness, headache, lack of concentration, associated with the menopause 04/18/2023 Assessment & Plan (04/18/2023 12:36 PM EST): Black cohosh ordered 03/28/23, our pharmacy is unable to [...] stockings Essential hypertension 04/06/2022 Assessment & Plan (09/22/2024 3:45 PM EDT): Maintenance: Chlorthalidone 25mg At goal at home BMP: due Lipid Panel: UTD ASCVD Risk:The 10-year ASCVD risk score (Ariel MOTT, et al., 2019) is: 3.1% Values used to calculate the score: Age: 53 years Sex: Female Is Non- : No Diabetic: No Tobacco smoker: No Systolic Blood Pressure: 138 mmHg Is BP treated: Yes HDL Cholesterol: 50 mg/dL Total Cholesterol: 197 mg/dL EKG: Obtain baseline at f/u - Aerobic [...] consulting health care provider Assessment & Plan (10/15/2022 8:40 AM EDT): [...] prescriptions without first consulting health care provider Anxiety 03/13/2018 Knee pain 03/13/2018 Severe obesity (CMS/HCC) 12/10/2017 Assessment & Plan (04/12/2022 9:47 AM [...] 8:40 AM EDT): Continue Pantoprazole 40mg daily Obstructive sleep apnea syndrome 05/21/2017 Assessment & [...] AM EST): Continue Atorvastatin Check lipids today Resolved Problems Problem Noted Date Diagnosed Date Resolved Date Itching of ear 04/06/2022 09/22/2024 Recurrent acute sinusitis 07/08/2017 Encounters Date Type Department Care Team Description 11/20/2024 11:00 AM EDT Telemedicine [facility] [address] [place] [address] Allison Garcia PharmD Hyperlipidemia, unspecified hyperlipidemia type (Primary Dx); Acquired hypothyroidism 11/16/2024 Orders Only [facility] [address] [place] [address] Amy Rosa MD Intramural and submucous leiomyoma of uterus (Primary Dx) 11/13/2024 Telephone [facility] [address] [place] [address] Amy Rosa MD telephone call 11/03/2024 Refill [facility] [address] [place] [address] Amy Rosa MD Chronic bilateral low back pain, unspecified whether sciatica present 11/03/2024 Refill [facility] [address] [place] [address] Amy Rosa MD Primary insomnia 10/27/2024 Refill [facility] [address] [place] [address] Amy Rosa MD Chronic bilateral low back pain, unspecified whether sciatica present 10/26/2024 Refill [facility] [address] [place] [address] Amy Rosa MD Primary insomnia 10/23/2024 Refill [facility] [address] [place] [address] Amy Rosa MD Primary insomnia 10/16/2024 11:30 AM EDT Telemedicine [facility] [address] [place] [address] Allison Garcia PharmD Allergic contact dermatitis, unspecified trigger (Primary Dx); Hyperlipidemia, unspecified hyperlipidemia type; Intramural and submucous leiomyoma of uterus 09/30/2024 Refill [facility] [address] [place] [address] Amy Rosa MD Primary insomnia 09/30/2024 Telephone [facility] [address] [place] [address] Amy Rosa MD 09/21/2024 3:15 PM EDT Office Visit [facility] [address] [place] [address] Amy Rosa MD Intramural and submucous leiomyoma of uterus (Primary Dx); Allergic contact dermatitis, unspecified trigger; Encounter for screening mammogram for malignant neoplasm of breast; Hyperlipidemia, unspecified hyperlipidemia type; Essential hypertension; Pure hypercholesterolemia; Severe obesity (CMS/HCC); Itching of ear 09/21/2024 Travel 09/18/2024 Telephone [facility] [address] [place] [phone] Amy Rosa MD Chart Prep 09/10/2024 Patient Outreach [address] [address] Amy Rosa MD Care Coordination (CHW outreach for SDOH housing search-referral completed ) 09/10/2024 Patient Outreach [address] [phone] Amy Rosa MD Pre-visit Planning (SDOH screening positive and tobacco screening negative) 08/30/2024 Refill [facility] [address] [place] [address] Amy Rosa MD Primary insomnia from Last 3 Months Immunizations Immunization Administration Dates Next Due Hep B, adult [...] Sign Reading Time Taken Comments Blood Pressure 141/85 10/16/2024 11:38 AM EDT Pulse 72 10/16/2024 11:38 AM EDT Temperature 36.2 C (97.2 F) 09/21/2024 3:33 PM EDT Respiratory Rate 20 09/21/2024 3:33 PM EDT Oxygen Saturation 99% 09/21/2024 3:33 PM EDT Inhaled Oxygen Concentration - - Weight 126 kg (277 lb) 09/21/2024 3:33 PM EDT Height 157.5 cm (5' 2 ) 09/21/2024 3:33 PM EDT Body Mass Index 50.66 09/21/2024 3:33 PM EDT Plan of Treatment Upcoming Encounters Date Type Department Care Team (Late st Contact Info) Description 11/24/2024 3:00 PM EDT Immunization [facility] [address] [place], [place] [phone] Health Maintenance Due Date Last Done Comments CT Colonography 1970 Colonoscopy 1970 FIT 1970 HIV Screening 1970 Sigmoidoscopy 1970 Hepatitis C Screening 11/16/1987 Pneumococcal Vaccine: 50+ Years (1 of 1 - PCV) 11/16/2019 FOBT 04/28/2023 04/27/2022 COVID-19 Vaccine ( - season) 2024 Influenza Vaccine (#1) 2024 , 12/03/2022, 12/06/2021, Additional history exists Depression Screening 11/07/2024 11/08/2023, 11/08/19 Cervical Cancer Screening 04/04/2025 HPV/Cotest 04/04/2025 04/04/2022, 02/13/2017 Pap Smear 04/04/2025 04/04/2022, 03/21, 02/13/2017 Colorectal Cancer Screening 04/27/2025 FIT DNA/Cologuard 04/27/2025 04/27/2022 SDOH Screening 09/10/2025 09/10/2024 Alcohol/Substance Use Screening 09/21/2025 09/21/2024 Disability Screening 09/21/2025 09/21/2024 Tobacco Screening 09/22/2025 09/22/2024 Mammogram 11/09/2025 11/09/2024, 06/18, 06/29/2022, Additional history exists Lipid Panel 04/12/2027 04/12/2022, 03/0 04/2021, 11/09/2019 DTaP/Tdap/Td Vaccines (3 - Td or Tdap) 07/12/2032 07/12/2022, 12/25/2011, 04/28/2008, Additional history exists RSV Patients and Patients Aged 60 years or older (1 - 1-dose 75+ series) 2044 Hepatitis B Vaccines Completed 11/28/2000, 11/28/1999, 09/28/1999 Zoster Vaccines Completed 07/12/2022, 05/10/2022 HIB Vaccines Aged Out No longer eligi [...] patient's age to complete this topic Meningococcal B Vaccine Aged Out No l onger eligible based on patient's age to complete [...] Comments BI MAMMOGRAM SCREENING TOMOSYNTHESIS BILATERAL Routine 11/09/2024 3:32 PM EDT Encounter for screening mammogram for malignant neoplasm of breast HM FIT DNA/COLOGUARD CANCER SCREENING Routine 04/27/2022 LIPID PANEL, STANDARD Routine 04/12/2022 11:45 AM EST Pure hypercholesterolemia IMAGE-GUIDED PAP W/AGE BASED SCR PROTOCOLS Routine 04/04/2022 12:00 AM EST from Last 3 Months or Most Recently Relevant to Health Maintenance Results * BI Mammogram Screening Tomosynthesis Bilateral (11/09/2024 3:32 PM EDT) Anatomical Region Laterality Modality Breast Bilateral Mammography 11/09/2024 3:32 PM EDT Narrative 11/10/2024 7:45 PM EDT [facility] [address] [place] [address] Mammography Report Signed Patient: Latonia Parker MR#: [id number] : 1970 Acct:[id number] Age/Sex: 53 / F ADM Date: 11/09/24 Loc: HO.MAMMO Attending Dr: Amy Rosa MD Ordering Physician: Amy Rosa Results: 1Negative Date of Service: 11/09/24 Follow Up: 1 Year From Orig inal Mammogram Procedure(s): MM tomosynthesis screening BI Accession Number(s): [id number] cc: Amy Rosa Reason For Exam: routine screening mammogram EXAMINATION: MM SCREENING DIGITAL BREAST TOMOSYNTHESIS, BILATERAL CLINICAL INFORMATION: Screening. Asymptomatic. COMPARISON: Comparison made to multiple prior, most recent June 29, 2022, and most remote May 21, 2017. TECHNIQUE: Digital breast tomosynthesis is performed in mediolateral oblique and craniocaudal views along with computer-aided detection (CAD). Synthesized 2D images are generated from the tomosynthesis. FINDINGS: BREAST COMPOSITION: There are scattered areas of fibroglandular density. BILATERAL BREASTS: No significant masses, suspicious calcifications or other abnormalities are seen in either breast. MM/MM tomosynthesis screening BI IMPRESSION: BILATERAL BREASTS: Negative, no mammographic evidence of malignancy. Normal interval follow-up is recommended in 12 months. ASSESSMENT: BI-RADS: Category 1: Negative RECOMMENDATION: Routine annual mammography screening. FOLLOW-UP: 1 year F/U This examination should not preclude the clinical evaluation of a suspicious palpable abnormality. This patient's information was entered into a reminder system with a target due date for their next mammogram. Electronically signed by: Chaparrita Márquez MD 11/10/2024 07:42 PM EDT Dictated By: Chaparrita Márquez MD Signed By: <Electronically signed by Chaparrita Márquez MD in OV> 11/10/241941 DD/ 1532 TD/TT: 11/09/24 1530 [place] Supervisor: Procedure Note Donotuseinterpreter, Image - 11/10/20[facility] [address] [place], [place] [address] Mammography Report Signed Patient: Paul Parker#: [id number] : 1970Acct:[id number] Age/Sex: 53 / FADM Date: 11/09/24 Loc: HO.MAMMO Attending Dr: Amy Rosa MD Ordering Physician: Dayana Rosaults: 1Negative Date of Service: 11/09/24Follow Up: 1 Year From Orig inal Mammogram Procedure(s): MM tomosynthesis screening BI Accession Number(s): [id number] cc: Amy Rosa Reason For Exam: routine screening mammogram EXAMINATION: MM SCREENING DIGITAL BREAST TOMOSYNTHESIS, BILATERAL CLINICAL INFORMATION: Screening. Asymptomatic. COMPARISON: Comparison made to multiple prior, most recent June 29, 2022, and most remote May 21, 2017. TECHNIQUE: Digital breast tomosynthesis is performed in mediolateral oblique and craniocaudal views along with computer-aided detection (CAD). Synthesized 2D images are generated from the tomosynthesis. FINDINGS: BREAST COMPOSITION: There are scattered areas of fibroglandular density. BILATERAL BREASTS: No significant masses, suspicious calcifications or other abnormalities are seen in either breast. MM/MM tomosynthesis screening BI IMPRESSION: BILATERAL BREASTS: Negative, no mammographic evidence of malignancy. Normal interval follow-up is recommended in 12 months. ASSESSMENT: BI-RADS: Category 1: Negative RECOMMENDATION: Routine annual mammography screening. FOLLOW-UP: 1 year F/U This examination should not preclude the clinical evaluation of a suspicious palpable abnormality. This patient's information was entered into a reminder system with a target due date for their next mammogram. Electronically signed by: Chaparrita Márquez MD 11/10/2024 07:42 PM EDT Dictated By: Chaparrita Márquez MD Signed By: <Electronically signed by Chaparrita Márquez MD in OV> 11/10/241941 DD/ 1532 TD/TT: 11/09/24 1530 [place] Supervisor: Result [facility] Amy Rosa MD IMG BI PROCEDURES Final Result * FIT DNA/Cologuard Cancer Screening (04/27/2022) Cologuard Cancer Screen Negative Stool Result [facility] Amy Rosa MD HEALTH MAINTENANCE Final Resul t * (ABNORMAL) Lipid Panel, Standard (04/12/2022 11:45 AM EST) Cholesterol, Total 197 <200 mg/dL [facility] [place] [employer] [facility] HDL Cholesterol 50 > OR = 50 mg/dL [facility] [place] [facility] Triglycerides 92 <150 mg/dL [facility] [place] [facility] LDL Cholesterol 127(H) mg/dL (calc) [facility] [place] [facility] Comment: Reference range: <100 Desirable range <100 mg/dL for primary prevention; <70 mg/dL for patients with CHD or diabetic patients with > or = 2 CHD risk factors. LDL-C is now calculated using the Selvin-El calculation, which is a validated novel method providing better accuracy than the Friedewald equation in the estimation of LDL-C. Selvin SS et al. ISIDRO. 2013;310(19): 9448-5637 (http://education.[employer]/faq/KDL216) Chol/HDLC Ratio 3.9 <5.0 (calc) [facility] [place] [facility] Non-HDL Cholesterol 147(H) <130 mg/dL (calc) [facility] [place] [facility] Comment: For patients with diabetes plus 1 major ASCVD risk factor, treating to a non-HDL-C goal of <100 mg/dL (LDL-C of <70 mg/dL) is considered a therapeutic option. Blood Venous blood specimen / Unknown 04/12/2022 11:45 AM EST 04/12/2022 11:46 AM EST Narrative [facility] - 04/13/2022 4:14 AM EST FASTING:YES FASTING: YES Result [facility] Amy Rosa MD LAB BLOOD ORDERABLES Final Res ult [facility] [address] [facility] [place] [address] [facility] [address] [facility], ([address]) [place] [address] * (ABNORMAL) Image-Guided Pap with Age-Based Screening Protocols (04/04/2022 12:00 AM EST) Comment [facility] Comment: This order for age-based cervical cancer and STI screening follows ACOG guidelines(PB 168, 140, EQR763). See individual assays for performing site location. Clinical Information: None given [facility] LMP: NONE GIVEN [facility] Prev. PAP: NONE GIVEN [facility] Prev. BX: NONE GIVEN [facility] SOURCE: None given [facility] Statement Of Adequacy: [facility] Comment: Satisfactory for evaluation. Endocervical/transformation zone component present. General Categorization: EPITHELIAL CELL ABNORMALITY(A) [facility] Interpretation/ Result: Atypical Squamous Cells of Undetermined Significance (ASC-US)(A) [facility] COMMENT: This Pap test has been evaluated with computer assisted technology. [facility] Cytotechnologis t: [facility] Comment: DMM, CT(ASCP) CT screening location: [address] [address] PATHOLOGIST: rBad Mendez [facility] Comment: Yuliya Cintron M.D., Ph.D., Board Certified in Anatomic Pathology and Cytopathology (electronic signature) Consulting Pathologist [facility] [address] [place] [phone] (Always Message) [facility] Comment: EXPLANATORY NOTE: The [...] HPV nRNA E6/E7 Not Detected Not Detected [facility] [place] [employer] [facility] Comment: Methodology: Mill Dresser-Mediated Amplification This assay detects E6/E7 viral messenger RNA (mRNA) from 14 high-risk HPV types (16,18,31,33,35,39,45,51,52,56,58,59,66,68). Cervical sources are required for HPV testing. If a vaginal source from a patient who has had a total hysterectomy with removal of cervix was submitted, please contact the testing laboratory for alternative testing options. For additional information, please refer to http://education.[employer]/faq/QAM793k0 (This link if provided for information/ educational purposes only.) 04/04/2022 04/05/2022 8:0 6 AM EST Narrative [facility] - 04/11/2022 12:00 PM EST FASTING: UNKNOWN Danitza LLOYD LAB BLOOD ORDERABLES Lidia hansen Result [facility] [address] [place] [address] [facility] [address] [place] [phone] [facility] [place] [facility] [address] [facility], ([address]) [place] [address] from Last 3 Months or Most Recently Relevant to Health Maintenance Insurance [facility] C3 Care Teams Rating Clerk Relationship Specialty Start Date End Date Amy Rosa MD [address] [place] [id number] PCP - General Family Medicine 04/05/22
--- OUTSIDE RECORDS SUMMARY | 2024-11-23 10:42 | XMS_ITS | Encounter Summary ---
Author Organization [employer] Address [address] [place] [address] Care Team Providers Care Paraffin Machine Operator Name Role Phone Amy Rosa MD Primary Care Provider [phone] Reason for Visit * Reason Onset Date Comments Med Refill 06/13/2023 Encounter Details Date Type Department Care Team ([facility] st Contact Info) Description 06/13/2023 Refill [facility] [address] [place] [address] Name, MD Henry [address] [place] [address] Primary insomnia Social History Tobacco Use Types [...] Info) Description 11/24/2024 3:00 PM EDT Immunization [facility] [address] [place] [address] documented as of this encounter Visit Diagnoses Diagnosis Primary insomnia Persistent disorder of initiating or maintaining sleep documented in this encounter Care Teams Paraffin Machine Operator Relationship Specialty Start Date End Date Amy Rosa MD [address] [place] [address] PCP - General Family Medicine 04/05/22 documented as of this encounter
--- OUTSIDE RECORDS SUMMARY | 2024-11-23 10:42 | XMS_ITS | Encounter Summary ---
Author Organization [employer] Address 75 [facility] 7t [place] [address] Care Team Providers Care Medical Office Technologist Name Role Phone Amy Rosa MD Primary Care Provider [phone] Reason for Referral * Consultation (Routine) - Closed Specialty Diagnoses / Procedures Referred By Contac t Referred To Contact Dermatology Diagnoses Candidal skin infection Amy Rosa MD [address] [place] [address] Phone: tel: fax: Referral ID Status Reason Start Date Expiration Date V isits Requested Visits Authorized [id number] Closed Specialty Services Required 03/30/2024 03/30/2025 1 1 Encounter Details Date Type Department Care Team ([facility] st Contact Info) Description 03/27/2024 Orders Only [facility] MEDICINE [address] [place] [address] [phone] Amy Rosa MD [address] [place], [place] [phone] Candidal skin infection (Primary Dx) Social History [...] Upcoming Encounters Date Type Department Care Team ([facility] st Contact Info) Description 11/24/2024 3:00 PM EDT Immunization [facility] MEDICINE [address] [place] [address] Scheduled Referrals Name Type Priority Associated Diagnoses Orde r Schedule Referral to [facility] Derm Skin Adult Outpatient Referral Routine Candidal skin infection Expected: 03/30/2024 (Approximate), Expires: 03/30/2025 documented as of this encounter Visit Diagnoses Diagnosis Candidal skin infection- Primary documented in this encounter Additional Health Concerns Assessment Noted Time PHQ-9 Depression Total Score: 0 11/08/19 24 2:44 PM EDT documented as of this encounter Care Teams Medical Office Technologist Relationship Specialty Start Date End Date Amy Rosa MD [address] [place] [address] PCP - General Family Medicine 04/05/22 documented as of this encounter
--- OUTSIDE RECORDS SUMMARY | 2024-11-23 10:42 | XMS_ITS | Encounter Summary ---
Author Organization [employer] Address 75 [facility] 7t [place] [address] Care Team Providers Care Nozzle Tender Name Role Phone Amy Rosa MD Primary Care Provider [phone] Encounter Details Date Type Department Care Team ([facility] st Contact Info) Description 12/19/2023 Orders Only [facility] MEDICINE [address] [place] [address] Amy Rosa MD [address] [place] [address] Cellulitis and abscess of foot (Primary Dx) [...] Info) Description 11/24/2024 3:00 PM EDT Immunization [facility] MEDICINE [address] [place] [address] documented as of this encounter Visit Diagnoses Diagnosis Cellulitis and abscess of foot- Primary Cellulitis and abscess of foot, except toes documented in this encounter Additional Health Concerns Assessment Noted Time PHQ-9 Depression Total Score: 0 11/08/19 24 2:44 PM EDT documented as of this encounter Care Teams Nozzle Tender Relationship Specialty Start Date End Date Amy Rosa MD [address] [place] [address] PCP - General Family Medicine 04/05/22 documented as of this encounter
--- OUTSIDE RECORDS SUMMARY | 2024-11-23 10:42 | XMS_ITS | Encounter Summary ---
Author Organization [employer] Address 75 [facility] 7t [place] [address] Care Team Providers Care Forestry And Wildlife Manager Name Role Phone Amy Rosa MD Primary Care Provider [phone] Reason for Visit * Reason Onset Date Comments Med Refill 09/13/2023 Encounter Details Date Type Department Care Team (Late st Contact Info) Description 09/13/2023 Refill [facility] MEDICINE [address] [place] [address] Amy Rosa MD 230 [place] [address] Vitamin D deficiency Social History Tobacco Use [...] Info) Description 11/24/2024 3:00 PM EDT Immunization [facility] MEDICINE [address] [place] [address] documented as of this encounter Visit Diagnoses Diagnosis Vitamin D deficiency documented in this encounter Care Teams Forestry And Wildlife Manager Relationship Specialty Start Date End Date Amy Rosa MD [address] [place] [address] PCP - General Family Medicine 04/05/22 documented as of this encounter
--- OUTSIDE RECORDS SUMMARY | 2024-11-23 10:42 | XMS_ITS | Encounter Summary ---
Author Organization [employer] Address 75 [facility] 7 [place] [address] Care Team Providers Care Automatic Die Cutting Machine Operator Name Role Phone Amy Rosa MD Primary Care Provider [phone] Encounter Details Date Type Department Care Team (Late Contact Info) Description 07/18/2022 [facility] Information Management [address] [place] [address] Amy Rosa MD [address] [place] [address] Social History Tobacco Use Types Packs/Day Years [...] Upcoming Encounters Date Type Department Care Team ([facility] Contact Info) Description 11/24/2024 3:00 PM EDT Immunization [facility] MEDICINE [address] [place] [address] documented as of this encounter Visit Diagnoses Not on filedocumented in this encounter Care Teams Automatic Die Cutting Machine Operator Relationship Specialty Start Date End Date Amy Rosa MD [address] [place] [address] PCP - General Family Medicine 04/05/22 documented as of this encounter
--- OUTSIDE RECORDS SUMMARY | 2024-11-23 10:42 | XMS_ITS | Encounter Summary ---
Author Organization [employer] Address 75 [facility] 7t [place] [address] Care Team Providers Care Manager Of Procurement Name Role Phone Amy Rosa MD Primary Care Provider [phone] Encounter Details Date Type Department Care Team ([facility] Contact Info) Description 05/16/2022 Abstract [facility] MEDICINE [address] [place] [address] Carmen Wright, RN [address] [place] [address] Social History Tobacco Use Types Packs/Day Years [...] Upcoming Encounters Date Type Department Care Team ([facility] Contact Info) Description 11/24/2024 3:00 PM EDT Immunization [facility] MEDICINE [address] [place] [address] documented as of this encounter Visit Diagnoses Not on filedocumented in this encounter Care Teams Manager Of Procurement Relationship Specialty Start Date End Date Amy Rosa MD 230 [facility] [place] [address] PCP - General Family Medicine 04/05/22 documented as of this encounter
--- OUTSIDE RECORDS SUMMARY | 2024-11-23 10:42 | XMS_ITS | Encounter Summary ---
Author Organization [employer] Address 75 [facility] [address] 7t [place] [address] Care Team Providers Care Pilot Highway Patrol Name Role Phone Amy Rosa MD Primary Care Provider [phone] Reason for Visit * Reason Onset Date Comments Med Refill 08/20/2023 Encounter Details Date Type Department Care Team (Late st Contact Info) Description 08/20/2023 Refill [facility] MEDICINE [address] [place] [address] Amy Rosa MD [address] [place] [address] Stress incontinence; Primary insomnia Social History Tobacco [...] Info) Description 11/24/2024 3:00 PM EDT Immunization [facility] MEDICINE [address] [place] [address] documented as of this encounter Visit Diagnoses Diagnosis Stress incontinence Female stress incontinence Primary insomnia Persistent disorder of initiating or maintaining sleep documented in this encounter Care Teams Pilot Highway Patrol Relationship Specialty Start Date End Date Amy Rosa MD [address] [place] [address] PCP - General Family Medicine 04/05/22 documented as of this encounter
--- OUTSIDE RECORDS SUMMARY | 2024-11-23 10:42 | XMS_ITS | Encounter Summary ---
Author Organization [employer] Address 75 [facility] 7t [place] [address] Care Team Providers Care Upholsterer Helper Name Role Phone Amy Rosa MD Primary Care Provider Encounter Details Date Type Department Care Team ([facility] Contact Info) Description 06/08/2022 Abstract [facility] MEDICINE [address] [place] [address] Amy Rosa MD [address] [place] [address] [phone] Social History Tobacco Use Types Packs/Day Years [...] Upcoming Encounters Date Type Department Care Team ([facility] Contact Info) Description 11/24/2024 3:00 PM EDT Immunization [facility] MEDICINE 230 [place] [address] documented as of this encounter Visit Diagnoses Not on filedocumented in this encounter Care Teams Upholsterer Helper Relationship Specialty Start Date End Date Amy Rosa MD [address] [place] [address] PCP - General Family Medicine 04/05/22 documented as of this encounter
--- OUTSIDE RECORDS SUMMARY | 2024-11-23 10:43 | XMS_ITS | Encounter Summary ---
Author Organization [employer] Address [address] [facility] [address] 7t [place] [address] Care Team Providers Care Production Team Advisor Name Role Phone Amy Rosa MD Primary Care Provider [phone] Encounter Details Date Type Department Care Team ([facility] Contact Info) Description 04/11/2022 Orders Only [facility] MEDICINE [address] [place] [address] Danitza Harrison, [facility] [address] [place] [address] Social History Tobacco Use Types Packs/Day Years [...] PM EST documented as of this encounter Functional Status * Over the past 2 weeks, how often have you been bothered by any of the following problems? Question Answer Date of Assessment Author Little interest or pleasure in doing things Not at all 04/11/2022 2:05 PM Mathew Stein MA Feeling down, depressed, or hopeless Not at all 04/11/2022 2:05 PM Mathew Stein MA Patient Health Questionnaire-2 Score 0 04/11/2022 2:05 PM Anna Stein MA documented as of this encounter Plan of Treatment Upcoming Encounters Date Type Department Care Team (Late st Contact Info) Description 11/24/2024 3:00 PM EDT Immunization [facility] MEDICINE [address] [place] [address] documented as of this encounter Procedures Procedure Name Priority Date/Time Associated Diagnosis Comments PAP SMEAR Routine 04/02/2022 12:00 AM EST documented in this encounter Results * Pap Smear (04/02/2022 12:00 AM EST) Swab [facility] ORDERABLES F inal Result [facility] [address], [place] [address] documented in this encounter Visit Diagnoses Not on filedocumented in this encounter Care Teams Production Team Advisor Relationship Specialty Start Date End Date Amy Rosa MD 230 [place] [address] PCP - General Family Medicine 04/05/22 documented as of this encounter
--- OUTSIDE RECORDS SUMMARY | 2024-11-23 10:43 | XMS_ITS | Encounter Summary ---
Author Organization [employer] Address 75 [facility] 7t [place] [address] Care Team Providers Care News Anchor Name Role Phone Amy Rosa MD Primary Care Provider [phone] Reason for Visit * Reason Onset Date Comments Med Refill 11/03/2024 Encounter Details Date Type Department Care Team (Late st Contact Info) Description 11/03/2024 Refill [facility] MEDICINE [address] [place] [address] Amy Rosa MD 230 [place] [address] Chronic bilateral low back pain, unspecified whether sciatica present Social History Tobacco Use Types Packs/Day Years [...] Info) Description 11/24/2024 3:00 PM EDT Immunization [facility] MEDICINE [address] [place] [address] documented as of this encounter Visit Diagnoses Diagnosis Chronic bilateral low back pain, unspecified whether sciatica present documented in this encounter Additional Health Concerns Assessment Noted Time PHQ-9 Depression Total Score: 0 11/08/19 24 2:44 PM EDT documented as of this encounter Care Teams News Anchor Relationship Specialty Start Date End Date Amy Rosa MD [address] [place] [address] PCP - General Family Medicine 04/05/22 documented as of this encounter
--- OUTSIDE RECORDS SUMMARY | 2024-11-23 10:43 | XMS_ITS | Encounter Summary ---
Author Organization [employer] Address 75 [facility] 7t [place] [address] Care Team Providers Care Operations Vice President Name Role Phone Amy Rosa MD Primary Care Provider [phone] Reason for Visit * Reason Comments Med Refill Encounter Details Date Type Department Care Team ([facility] st Contact Info) Description 10/23/2024 Refill [facility] MEDICINE [address] [place] [address] Amy Rosa MD [address] [place] [address] Primary insomnia Social History Tobacco Use Types [...] Info) Description 11/24/2024 3:00 PM EDT Immunization [facility] MEDICINE [address] [place] [address] documented as of this encounter Visit Diagnoses Diagnosis Primary insomnia Persistent disorder of initiating or maintaining sleep documented in this encounter Additional Health Concerns Assessment Noted Time PHQ-9 Depression Total Score: 0 11/08/19 24 2:44 PM EDT documented as of this encounter Care Teams Operations Vice President Relationship Specialty Start Date End Date Amy Rosa MD [address] [place] [address] PCP - General Family Medicine 04/05/22 documented as of this encounter
--- OUTSIDE RECORDS SUMMARY | 2024-11-23 10:43 | XMS_ITS | Encounter Summary ---
Author Organization [employer] Address [address] [facility] [address] 7[address] [place] [address] Care Team Providers Care Rn Transplant Name Role Phone Amy Rosa MD Primary Care Provider [phone] Encounter Details Date Type Department Care Team ([facility] st Contact Info) Description 03/28/2023 Orders Only [facility] MEDICINE [address] [place] [address] Amy Rosa MD [address] [place], [place] [phone] Social History Tobacco Use Types Packs/Day Years [...] Info) Description 11/24/2024 3:00 PM EDT Immunization [facility] MEDICINE 230 [place] [address] documented as of this encounter Procedures Procedure Name Priority Date/Time Associated Diagnosis Comments GRAM STAIN Routine 12/18/2023 2:00 PM EDT documented in this encounter Results * Gram stain (12/18/2023 2:00 PM EDT) 12/18/2023 2:00 PM EDT 12/18/2023 6:11 PM EDT Comment:Foot Rt [facility] - 12/21/2023 7:42 AM EDT Gram [...] aeruginosa: Piperacillin/Tazobactam <=4(S) Specimen Source: Foot Right [facility] DISTRIBUTED GENERATION PROJECT MANAGER LAB MICROBIOLOGY - GENERAL OR DERABLES Final Result [facility] [address] [place] [address] [phone] documented in this encounter Visit Diagnoses Not on filedocumented in this encounter Care Teams Rn Transplant Relationship Specialty Start Date End Date Amy Rosa MD [address] [place] [address] PCP - General Family Medicine 04/05/22 documented as of this encounter
--- OUTSIDE RECORDS SUMMARY | 2024-11-23 10:43 | XMS_ITS | Encounter Summary ---
Author Organization [employer] Address 75 [facility] 7t [place] [address] Care Team Providers Care Rn Endocrinology Name Role Phone Amy Rosa MD Primary Care Provider [phone] Reason for Referral * Consultation (Routine) - Closed Specialty Diagnoses / Procedures Referred By Contac t Referred To Contact Obstetrics and Gynecology Diagnoses Intramural and submucous leiomyoma of uterus Amy Rosa MD [address] [place] [address] Phone: tel: fax: [facility] OB-SQL DATABASE ADMINISTRATOR Group [facility]5 [place], [place] Phone: tel: fax: Referral ID Status Reason Start Date Expiration Date V isits Requested Visits Authorized [id number] Closed Specialty Services Required 11/16/2024 11/16/2025 9 9 Encounter Details Date Type Department Care Team (Late st Contact Info) Description 11/16/2024 Orders Only [facility] MEDICINE [address] [place], [place] [phone] Amy Rosa MD [address] [place], [place] [phone] Intramural and submucous leiomyoma of uterus (Primary Dx) Social History Tobacco Use Types [...] Encounters Date Type Department Care Team ([facility] st Contact Info) Description 11/24/2024 3:00 PM EDT Immunization [facility] MEDICINE [address] [place] [address] Scheduled Referrals Name Type Priority Associated Diagnoses Order Schedule Referral to Obstetrics / Gynecology Outpatient Referral Routine Intramural and submucous leiomyoma of uterus Expected: 11/16/2024 (Approximate), Expires: 11/16/2025 documented as of this encounter Visit Diagnoses Diagnosis Intramural and submucous leiomyoma of uterus- Primary documented in this encounter Additional Health Concerns Assessment Noted Time PHQ-9 Depression Total Score: 0 11/08/19 24 2:44 PM EDT documented as of this encounter Care Teams Rn Endocrinology Relationship Specialty Start Date End Date Amy Rosa MD [address] [place] [address] PCP - General Family Medicine 04/05/22 documented as of this encounter
[2024-11-23 12:10] LABS: Cholesterol 218 mg/dL (<200); HDL Cholesterol 37 mg/dL (>40); Triglycerides 129 mg/dL (<150)
== END 2024-11-23 09:28 | disposition home or self-care (01) ==
LOC: HO.HHCL 09:27
PROVIDERS: PCP General Practice; Visit Provider General Practice
DX: E78.5 Hyperlipidemia, unspecified (principal); E03.9 Hypothyroidism, unspecified
CPT/HCPCS: 36415; 80061; 84443

== ENCOUNTER 2024-12-09 15:59 | Outpatient (AMB) | payer MEDICAID, SELFPAY ==
[2024-12-09 16:07] VITALS: BP 142/80; PULSE 68; O2SAT 99; BMI 53.6
--- NOTE | 2024-12-09 16:07 | A.OFFVIS_ITS ---
Vital Signs 12/09/24 16:07 Height 5 ft 2 in Weight 293 lb 3.437 oz BMI 53.6 BP 142/80 H Blood Pressure Location Lt brachial Position Sitting Pulse 68 Pulse Source Pulse Oximeter Pulse Oximetry (%) 99 Oxygen Delivery Method Room Air Intake Visit Reasons: Allergic Rhinitis Intake Note: pt is here for follow up of CASSIDY, she is feeling well but just in a lot of pain, due to her arthritis. Ski Instructor Required: No Supervisor Electronics Inspection: Supervisor Electronics Inspection offered & declined Allergies sulfamethoxazole (From Bactrim) Adverse Reaction (Verified 12/09/24 16:31) rash trimethoprim (From Bactrim) Adverse Reaction (Verified 12/09/24 16:31) rash Medication List - Last Reconciled 12/09/24 by Breonna Canseco MD atorvastatin 40 mg PO DAILY cetirizine 10 mg PO DAILY PRN chlorthalidone 25 mg PO QAM PRN cholecalciferol (vitamin D3) 25 mcg PO DAILY fluticasone propionate 50 mcg/actuation 2 sprays intranasal QAM levothyroxine 88 mcg PO DAILY lidocaine 5% patches topical lisinopril 2.5 mg PO DAILY meloxicam 15 mg PO DAILY pantoprazole 40 mg PO DAILY zolpidem 5 mg PO BEDTIME Do you need a note to return to daycare/school/sports/work: No HPI HPI Allergic Rhinitis: Details: [place], 54 years old very pleasant female who is morbidly obese and has obstructive sleep apnea is here for 6 months follow-up. She has been using her CPAP very regularly, sleeping good, and remains well motivated to use the CPAP. She is also happy that she has lost 5 more lb of weight. She is trying her best with dietary restrictions however she is not able to walk or do much exercise due to her arthritis. Breathing torres she has no issue. [facility] Medical History Allergic rhinitis CASSIDY on CPAP Morbid obesity Anxiety PLMD (periodic limb movement disorder) Dry eyes CASSIDY (obstructive sleep apnea) GERD (gastroesophageal reflux disease) Menorrhagia with regular cycle Iron deficiency Class 3 severe obesity due to excess calories in adult Chronic midline low back pain Anosmia Depression Stress incontinence Hypothyroid Eczema Right knee meniscal tear Pure hypercholesterolemia Family History Mother Diabetes Father Cancer Son Diabetes Social History Patient Tobacco Use Status: Former Tobacco user Review of Systems Const All systems reviewed & are unremarkable except as noted in HPI and below Eyes Reports no additional complaints ENT Reports nasal congestion (OFF AND ON) and Reports nasal discharge Card Reports no additional complaints Resp Reports no additional complaints GI Reports constipation and Reports heartburn (GERD SYMPTOMS CONTROLLED WITH MED) Reports no additional complaints Musc Reports no additional complaints Skin/Breast Reports system reviewed and no additional complaints, except as documented Neuro Reports no additional complaints and Reports restless legs (HAS IMPROVED AND SHE IS OF IRON SUPPLEMENTS) Psych Reports no additional complaints Endo Reports other (HYPOTHYROIDISM BEING TREATED WITH MED) Physical Exam Vital Signs: Last Vital Signs Pulse 68 12/09/24 16:07 BP 142/80 H 12/09/24 16:07 Pulse Ox 99 12/09/24 16:07 Oxygen Delivery Method Room Air 12/09/24 16:07 BMI result Body Mass Index 53.6 Const Other: OBESE BUT HEALTHY LOOKING. General: comfortable, no acute distress, alert and awake Orientation/consciousness: patient oriented x3 HEENT Head: Yes normal to inspection General nose exam: No nasal polyps present and No nasal discharge present Face and sinus: Yes sinuses nontender Mouth: oropharynx normal Throat: Yes posterior oropharynx normal Eyes General: appearance normal, both eyes and all related structures Neck Neck: Yes normal visual inspection, Yes no lymphadenopathy, Yes trachea midline and Yes no JVD Thyroid: Thyroid normal Chest Chest palpation & inspection: normal inspection of the chest, normal palpation of entire chest wall and no tenderness Resp Effort & Inspection: normal respiratory effort Auscultation: clear to auscultation bilaterally, no crackles and no wheezes Cardio Palpation: normal PMI Rate: regular rate Rhythm: regular rhythm Heart sounds: no gallops and no murmurs Peripheral pulses: Peripheral pulses 2+ throughout GI Palpation (GI): Soft to palpation, nontender, No hepatosplenomegaly present, no masses and Other GI palpation findings present (ABDOMEN IS OBESE AND SOMEWHAT PROTUBERANT) Auscultation: normal bowel sounds Back/Spine/Pelvis Thoracic/Lumbar Spine: thoracic and lumbar spine normal to inspection and thoraco-lumbar ROM limited Skin General skin exam: no rashes or lesions noted Neuro General: patient oriented x3 and no focal motor deficits Cranial nerves: Yes CN's II-XII intact bilaterally Extrem General: Yes normal to inspection, Yes no calf tenderness and Yes edema (TRACE OF PITTING EDEMA OF BOTH LEGS) Psych Appearance: grossly normal and well kempt Speech and movement: Normal speech and movement present Results Reviewed Results Reviewed: Compliance report for the last 30 nights reviewed and. She has used 30/30 nights,. 100% Average use it per night. 8 hours 20 minutes Pressure used is 8 cm. She does have some air leak maximum 79. It is not sustained, Residual AHI only 1.3 Assessment & Plan Assessment & Plan (1) Morbid obesity: Comment: SHE REMAINS MORBIDLY OBESE, BUT HAS LOST SIGNIFICANT WEIGHT ( 25 LBS ) IN THE LAST 10 MONTHS. HE IS HAPPY ABOUT THIS Code(s): E66.01 - Morbid (severe) obesity due to excess calories Category: Medical Plan: COMMENDED FOR WORKING HER TO LOSE WEIGHT. 100 ADVISE THAT SHE SHOULD CONTINUE TO WATCH HER DIET AND LOSE WEIGHT SLOWLY. (2) CASSIDY on CPAP: Comment: PATIENT HAS HISTORY OF MODERATELY SEVERE OBSTRUCTIVE SLEEP APNEA, DOING VERY WELL WITH THE CPAP THERAPY. SHE HAS A REPLACEMENT UNIT AND IS VERY HAPPY WITH IT. SHE IS VERY COMPLIANT AND DEFINITELY BENEFITING FROM THE USE OF CPAP. Code(s): G47.33 - Obstructive sleep apnea (adult) (pediatric); Z99.89 - Dependence on other enabling machines and devices Category: Medical Plan: COMMENDED FOR GOOD COMPLIANCE AND ADVISED TO CONTINUE USING THE CPAP REGULARLY. (3) Allergic rhinitis: Comment: PATIENT HAS SYMPTOMS OF NASAL CONGESTION WITH POSTNASAL DRIP , SEC TO ALLERGIC RHINITIS. WITH OCCASIONAL FLARE UPS. Code(s): J30.9 - Allergic rhinitis, unspecified Category: Medical Plan: ADVISED TO USE FLONASE -50 2 SPRAYS IN EACH NOSTRIL DAILY ALSO MAY USE CETIRIZINE 10 MG ONCE A DAY P.R.N. Coding Level of Care Code Est Pt Level 3 (83276) Diagnoses Morbid obesity E66.01 CASSIDY on CPAP G47.33; Z99.89 Allergic rhinitis J30.9
== END 2024-12-09 16:25 | disposition home or self-care (01) ==
LOC: HO.HPS 15:59
PROVIDERS: PCP General Practice; Visit Provider Internal Medicine
DX: E66.01 Morbid (severe) obesity due to excess calories (principal); G47.33 Obstructive sleep apnea (adult) (pediatric); Z99.89 Dependence on other enabling machines and devices; J30.9 Allergic rhinitis, unspecified
CPT/HCPCS: 99213

== ENCOUNTER → 2024-12-09 15:59 | Outpatient (BNVA) | payer MEDICAID, SELFPAY | PROVIDERS: PCP General Practice; Visit Provider Internal Medicine | DX: J30.9 Allergic rhinitis, unspecified (principal); G47.33 Obstructive sleep apnea (adult) (pediatric); Z99.89 Dependence on other enabling machines and devices; E66.01 Morbid (severe) obesity due to excess calories | CPT/HCPCS: 99212 ==